=== PATIENT | female | born 1940 | race Two or more races ===

== ENCOUNTER 2018-10-30 11:22 | Emergency (ER) | payer SELFPAY ==
[~2018-10-30] VITALS: Ht 152.4 cm; Wt 54.4 kg
--- NOTE | 2018-10-30 11:22 | NUR ---
BIB RA60 78 YEAR OLD FEMALE ALTERED MENTAL STATUS, HYPOTENSIVE BP 80/45, O2 SAT 91%RA, GOOD EQUAL COMMERCIAL KITCHEN SERVICE TECHNICIAN PER EMS. BG 171 ON THE FIELD, PATIENT UNABLE TO VERBALIZE NEEDS, BREATHING EVEN AND LABORED, ON CONTINUOUS O2 VIA NC, SATURATING AT 93%, SKIN WARM TO TOUCH. MD AT BEDSIDE. ALL ORDERED INITATED
--- NOTE | 2018-10-30 11:23 | NUR ---
PATIENT TRANSPORTED FOR CT VIA GURNEY.
--- NOTE | 2018-10-30 11:23 | NUR ---
CODE STROKE ACTIVATED.
[2018-10-30] MEDS ORDERED: IV NS 0.9% 1,000 ML BAG IV ONE ×2 (11:30→12:00)
--- NOTE | 2018-10-30 11:30 | NUR ---
PATIENT CAME FROM CT SCAN WITH CONTRAST, ALL IV MEDS GIVEN ORDERED. F/C WAS INSERTED, PROFESSOR OF BIOLOGICAL SCIENCES AT BEDSIDE.
[2018-10-30] MEDS ORDERED: IV NS 0.9% 250 ML IV ONE (11:34)
[2018-10-30] MEDS ORDERED: IOHEXOL-350 100 ML VIAL IV ONE (11:34)
[2018-10-30] MEDS ORDERED: CT SWABBABLE VALVE TRANS SET 1 EA INFUS.SET MC ONE (11:35)
--- NOTE | 2018-10-30 11:40 | NUR ---
PATIENT REMAINS STABLE, ALL VS ARE STABLE. NO DISTRESS NOTED. BLOOD DRAW AND URINE SAMPLE SENT TO LAB
[2018-10-30 11:46] LABS: BASOPHILS # (AUTO) 0.1 /CMM (0.0-0.2); BASOPHILS % (AUTO) 0.8 % (0.0-2.0); EOSINOPHILS % (AUTO) 0.8 % (0.0-6.0); HEMATOCRIT 31 % (33-45); HEMOGLOBIN 9.8 g/dL (11.5-14.8); LYMPHOCYTES # (AUTO) 2.7 /CMM (0.8-4.8); LYMPHOCYTES % (AUTO) 34.6 % (20.0-44.0); MEAN CORPUSCULAR HGB CONC 32 g/dl (31.0-36.0); MEAN CORPUSCULAR VOLUME 94 fL (82-100); MONOCYTES # (AUTO) 0.9 /CMM (0.1-1.30); MONOCYTES % (AUTO) 11.9 % (2.0-12.0); NEUTROPHILS % (AUTO) 51.9 % (43.0-81.0); PLATELET COUNT (AUTO) 243 /CMM (150-450); RED BLOOD CELL COUNT(AUTO) 3.25 MIL/uL (4.0-5.2); WHITE BLOOD COUNT (AUTO) 7.7 K/uL (4.3-11.0)
[2018-10-30 11:51] LABS: CALCIUM, SERUM 8.1 mg/dL (8.5-10.1); CARBON DIOXIDE 26 mmol/L (21-32); CHLORIDE 111 mmol/L (98-107); CREATININE 1.1 mg/dL (0.6-1.3); GLUCOSE 142 mg/dL (74-106); POTASSIUM 4.4 mmol/L (3.5-5.1); SODIUM SERUM 144 mmol/L (136-145); UREA NITROGEN, BLOOD 27 mg/dL (7-18)
[2018-10-30] MEDS ORDERED: CEFTRIAXONE 1 G VIAL ONE (11:55)
[2018-10-30 11:59] LABS: CHOLESTEROL 148 mg/dL (<200); HDL CHOLESTEROL 62 mg/dL (40-60); LDL 81 mg/dL (0-99); TRIGLYCERIDES 65 mg/dL (30-150)
[2018-10-30] MEDS ORDERED: CEFTRIAXONE 1GM BAG (ER ONLY) 50 ML IV ONE (12:00)
[2018-10-30 12:01] LABS: APPEARANCE,URINE Cloudy (CLEAR); BILIRUBIN,URINE Negative (NEGATIVE); BLOOD, URINE Negative Ery/uL (NEGATIVE); COLOR,URINE Yellow (YELLOW); KETONES,URINE Trace (NEGATIVE); LEUKOCYTE ESTERASE ,URINE Negative (NEGATIVE); NITRITE, URINE Negative (NEGATIVE); PROTEIN,URINE 30 mg/dl (NEGATIVE); UGLUCOSE Negative (NEGATIVE); UROBILINOGEN,URINE 0.2 EU/dL (0.2)
[2018-10-30 12:09] LABS: ALANINE AMINOTRANSFERASE 17 U/L (12-78); ALBUMIN 2.8 g/dL (3.4-5.0); ALKALINE PHOSPHATASE 126 U/L (46-116); ASPARTATE AMINOTRANSFERASE 33 U/L (15-37); BILIRUBIN,DIRECT 0.1 mg/dL (0.0-0.2); BILIRUBIN,TOTAL 0.2 mg/dL (0.2-1.0); TOTAL PROTEIN, SERUM 7.5 g/dL (6.4-8.2)
[2018-10-30] MEDS ORDERED: MIDAZOLAM HCL 2 MG/2ML VIAL ONE (12:10)
[2018-10-30] MEDS ORDERED: MIDAZOLAM HCL 2 MG/2ML VIAL IV ONE (12:30)
[2018-10-30] MEDS ORDERED: HALOPERIDOL LACTATE INJ 5 MG/ML VIAL IM ONE (12:30)
[2018-10-30] MEDS ORDERED: HALOPERIDOL LACTATE INJ 5 MG/ML VIAL ONE (12:32)
--- NOTE | 2018-10-30 12:40 | NUR ---
PATIENT VSS ARE STABLE, FAMILY AT BEDSIDE
--- NOTE | 2018-10-30 12:50 | NUR ---
NURSING SUP MADE AWARE OF TELE REQUEST FOR THIS PATIENT.
[2018-10-30] MEDS ORDERED: FENTANYL PF 100MCG/2ML AMPUL ONE (12:58)
[2018-10-30] MEDS ORDERED: FENTANYL PF 100MCG/2ML AMPUL IV ONE (13:00)
--- NOTE | 2018-10-30 13:02 | NUR ---
CALLED [facility]- DR CAMPOVERDE PAGED
--- NOTE | 2018-10-30 13:07 | NUR ---
PT ADMIT TO ROOM 326-2 TELE DX AMS ACCEPTING: NIRALI
--- NOTE | 2018-10-30 13:10 | NUR ---
PER MD VERBAL ORDER TO REMOVE F/C. F/C WAS REMOVED, PATIENT TOLERATED REMOVAL WELL.
[2018-10-30] MEDS ORDERED: ATRO3.5O3 SL (13:11)
[2018-10-30] MEDS ORDERED: ASPI-1169 PO (13:11)
[2018-10-30] MEDS ORDERED: ZOLP5TAB2 PO (13:11)
[2018-10-30] MEDS ORDERED: ACET650S11 RC (13:11)
[2018-10-30] MEDS ORDERED: FOLI1TAB16 PO (13:11)
[2018-10-30] MEDS ORDERED: MIRT15TA7 PO (13:11)
[2018-10-30] MEDS ORDERED: HYDR-4384 PO (13:11)
[2018-10-30] MEDS ORDERED: SENN-168 PO (13:11)
[2018-10-30] MEDS ORDERED: LEVO50TA8 PO (13:11)
[2018-10-30] MEDS ORDERED: QUET25TA PO (13:11)
[2018-10-30] MEDS ORDERED: LORA2ORA SL (13:11)
[2018-10-30] MEDS ORDERED: POLY17PO4 PO (13:11)
[2018-10-30] MEDS ORDERED: BISA10SU8 RC (13:11)
[2018-10-30] MEDS ORDERED: MORP20SO SL (13:11)
[2018-10-30] MEDS ORDERED: CARB1DRO3 EACHEYE (13:11)
[2018-10-30] MEDS ORDERED: ATOR40TA PO (13:11)
[2018-10-30] MEDS ORDERED: ACET-868 PO (13:11)
[2018-10-30] MEDS ORDERED: PROC25SU31 RC (13:11)
--- NOTE | 2018-10-30 13:12 | NUR ---
[phone] UNDER THE CARE OF [facility] [phone].
[2018-10-30] MEDS ORDERED: HYDROCODONE/APAP 5/325MG 1 EACH TABLET ONE (13:25)
--- NOTE | 2018-10-30 13:29 | NUR ---
PATIENT IS ABLE TO SWALLOW SIPS OF WATER WITHOUT DIFFICULTY. PAIN MEDS GIVEN ORDERED
[2018-10-30] MEDS ORDERED: HYDROCODONE/APAP 5/325MG 1 EACH TABLET PO ONE (13:30)
--- NOTE | 2018-10-30 14:05 | NUR ---
CALLED [facility] FOR S TRANSPORT [place] [address] [facility] [id number] ETA [phone] TRIP [id number]
--- NOTE | 2018-10-30 15:19 | NUR ---
REPORT GIVEN TO JAZMYN GILMORE, PATIENT WILL BE TRANSFERRED BACK TO FACILITY. PATIENT IS IN STABLE CONDTION WITH NO DISTRESS NOTED.
[2018-10-30 15:20] VITALS: BP 109/80
--- NOTE | 2018-10-30 15:20 | NUR ---
Patient discharged to home in stable condition. Written and verbal after care instructions given. Patient verbalizes understanding of instruction. IV removed. Catheter intact and site benign. Pressure and 4x4 applied to site. No bleeding noted.
== END 2018-10-30 15:20 ==
LOC: ER 11:24
DX: R41.82 Altered mental status, unspecified (principal); F03.90 Unspecified dementia, unspecified severity, without behavioral disturbance, psychotic disturbance, mood disturbance, and anxiety; Z79.82 Long term (current) use of aspirin; Z79.899 Other long term (current) drug therapy
CPT/HCPCS: 36415; 51702; 70450; 70496; 70498; 71045; 80048; 80061; 80076; 80305; 81001; 83605; 84484; 85025; 85730; 86850; 87040 ×2; 87077; 87081; 87086; 87186; 93005; 96361; 96372; 96374; 96375; 99284; A4606; J0696; J1630; J2250; J3010; J7030; J7050; J7060; Q9967; Z7610; 81000-TC

== ENCOUNTER 2019-02-17 10:03 | Inpatient (IN) | payer MEDICAID ==
[~2019-02-17] VITALS: Ht 152.4 cm; Wt 49.9 kg
[2019-02-17] VITALS (65 sets, daily range): BP systolic 60–118; BP diastolic 21–85
[~2019-02-17 10:03] MED LIST: ACET-868 PO; ACET650S11 RC; ASPI-1169 PO; ATOR40TA PO; ATRO3.5O3 SL; BISA10SU8 RC; CARB1DRO3 EACHEYE; FOLI1TAB16 PO; HYDR-4384 PO; LEVO50TA8 PO; LORA2ORA SL; MIRT15TA7 PO; MORP20SO SL; POLY17PO4 PO; PROC25SU31 RC; QUET25TA PO; SENN-168 PO; ZOLP5TAB2 PO
--- NOTE | 2019-02-17 10:06 | NUR ---
BIB RA 39 FROM [facility], LOW O2SAT(80'S), TO ER BED 5, HOOKED TO SHINE WORKER, CHANGED TO RT STEVE AT BEDSIDE, DR SARAVIA AT BEDSIDE.
[2019-02-17] MEDS ORDERED: ASPI-1152 PO (10:21)
[2019-02-17] MEDS ORDERED: IV NS 0.9% 1,000 ML BAG IV ONE (10:30)
[2019-02-17] MEDS ORDERED: ACETAMINOPHEN 650 MG/SUPP.RECT RC ONE ×2 (10:30→12:41)
[2019-02-17] MEDS ORDERED: CEFEPIME 1 GM in IV D5W 50 ML IV ONE (10:30)
--- NOTE | 2019-02-17 10:40 | NUR ---
INDWELLING HUGHES CATHETER INSERTED 16F, URINE SAMPLE SENT TO LAB
[2019-02-17 10:56] LABS: BASOPHILS % (AUTO) 0.3 % (0.0-2.0); EOSINOPHILS % (AUTO) 0.1 % (0.0-6.0); HEMATOCRIT 31 % (33-45); HEMOGLOBIN 9.9 g/dL (11.5-14.8); LYMPHOCYTES # (AUTO) 1.4 /CMM (0.8-4.8); LYMPHOCYTES % (AUTO) 35.1 % (20.0-44.0); MEAN CORPUSCULAR HGB CONC 32 g/dl (31.0-36.0); MEAN CORPUSCULAR VOLUME 89 fL (82-100); MONOCYTES # (AUTO) 0.2 /CMM (0.1-1.30); MONOCYTES % (AUTO) 6.5 % (2.0-12.0); NEUTROPHILS # (AUTO) 2.2 /CMM (1.8-8.9); PLATELET COUNT (AUTO) 297 /CMM (150-450); RED BLOOD CELL COUNT(AUTO) 3.49 MIL/uL (4.0-5.2); WHITE BLOOD COUNT (AUTO) 3.9 K/uL (4.3-11.0)
[2019-02-17 10:58] LABS: APPEARANCE,URINE Slightly Cloudy (CLEAR); BILIRUBIN,URINE SMALL (NEGATIVE); BLOOD, URINE Negative Ery/uL (NEGATIVE); COLOR,URINE Yellow (YELLOW); KETONES,URINE Negative (NEGATIVE); LEUKOCYTE ESTERASE ,URINE Negative (NEGATIVE); NITRITE, URINE Negative (NEGATIVE); PH,URINE 6.5 (5.0-8.0); PROTEIN,URINE 30 mg/dl (NEGATIVE); UGLUCOSE Negative (NEGATIVE)
[2019-02-17 11:03] LABS: CALCIUM, SERUM 8.8 mg/dL (8.5-10.1); CARBON DIOXIDE 19 mmol/L (21-32); CHLORIDE 108 mmol/L (98-107); CREATININE 2.5 mg/dL (0.6-1.3); GLUCOSE 123 mg/dL (74-106); POTASSIUM 3.8 mmol/L (3.5-5.1); SODIUM SERUM 143 mmol/L (136-145); UREA NITROGEN, BLOOD 28 mg/dL (7-18)
[2019-02-17 11:08] LABS: ALANINE AMINOTRANSFERASE 15 U/L (12-78); ALBUMIN 2.2 g/dL (3.4-5.0); ALKALINE PHOSPHATASE 112 U/L (46-116); ASPARTATE AMINOTRANSFERASE 55 U/L (15-37); BILIRUBIN,DIRECT 0.7 mg/dL (0.0-0.2); BILIRUBIN,TOTAL 1.3 mg/dL (0.2-1.0); TOTAL PROTEIN, SERUM 7.3 g/dL (6.4-8.2)
[2019-02-17 11:18] LABS: BACTERIA,URINE Many /HPF (None Seen); RBC,URINE 0-2 /HPF (0-2); SQUAMOUS EPITHELIAL CELL,UR Rare /HPF (None Seen); WBC,URINE 0-2 /HPF (0-3)
[2019-02-17] MEDS ORDERED: MAGNESIUM HYDROXIDE 30 ML UDC PO PRN (11:30)
[2019-02-17] MEDS ORDERED: Z GUARD REMEDY 2 OZ OINT TP PRN (11:30)
[2019-02-17] MEDS ORDERED: MAG HYDROX/AL HYDROX/SIMETH 30 ML UDC PO PRN (11:30)
[2019-02-17] MEDS ORDERED: ONDANSETRON HCL/PF 4 MG/2 ML VIAL IVP PRN (11:30)
[2019-02-17] MEDS ORDERED: HYDROCODONE/APAP 5/325MG 1 EACH TABLET PO PRN (11:30)
[2019-02-17] MEDS ORDERED: ACETAMINOPHEN 325 MG TABLET PO PRN (11:30)
[2019-02-17] MEDS ORDERED: ZOLPIDEM TARTRATE 5 MG TABLET PO PRN (11:30)
--- NOTE | 2019-02-17 11:40 | NUR ---
RT RECD PT ON NON REBREATHER PLACED PT ON BIPAP PER MD ORDERS
[2019-02-17 11:55] LABS: BAND % (MANUAL) 24 % (0.0-5.0); LYMPHOCYTES % (MANUAL) 47 % (16-48); METAMYELOCYTES % 1 % (0-0); MONOCYTES % (MANUAL) 18 % (0-11.0); NEUTROPHILS % (MANUAL) 10 (42-76)
--- NOTE | 2019-02-17 12:15 | NUR ---
PT WHEELED OUT VIA GURNEY TO CT SCAN. RT AT BEDSIDE.
[2019-02-17 12:42] LABS: ABG BASE EXCESS -3.3 mmol/L; ABG OXYGEN SATURATION 92.2 % (92.0-98.5); ABG PCO2 29.6 mmHg (35.0-45.0); ABG PH 7.445 (7.350-7.450); ABG PO2 70.5 mmHg (75.0-100.0); AaDO2 612.9 mmHg; COHb 0.2 % (0.5-1.5); MetHb 0.2 % (0.0-1.5); O2Hb 91.8 % (94.0-97.0); SITE, ABG Left Brachial; VENT MODE, BG BIPAP 15/5 RR14 100%
--- NOTE | 2019-02-17 13:12 | NUR ---
ICU BED 252, PER HOUSE SUP
[2019-02-17] MEDS ORDERED: IV D5/0.45 NACL 1,000 ML IV SCH (13:30)
--- NOTE | 2019-02-17 13:46 | NUR ---
REPORT GIVEN TO SULMA OF ICU
[2019-02-17] MEDS ORDERED: FEE PK DOSING 1 MIN EA MC ONE (14:17)
[2019-02-17] MEDS ORDERED: VANCOMYCIN 500 MG in IV D5W 100 ML IV SCH (15:00)
[2019-02-17] MEDS ORDERED: IV D5/ 0.9% NACL 1,000 ML IV ONE (15:00)
[2019-02-17] MEDS ORDERED: IV NS 0.9% 1,000 ML IV ONE (15:00)
--- NOTE | 2019-02-17 15:10 | NUR ---
RT REC PT ON NON REBREATHER PLACED ON BIPAP PER MD ORDERS, TRANSFERRED TO ICU NO SOB PLACED MEPILEX WLL CONT TO MONITOR Addendum: 02/17/19 at 1511 by YVONNE SYLVESTER RT Amended: Links added.
--- NOTE | 2019-02-17 15:22 | NUR ---
INITIAL BITUMEN PLANT OPERATOR NOTE ADMITTED PT FROM ER, APPEARS LETHARGIC, RESPONDING TO PAINFUL STIMULI, SR ON MONITOR, ON BIPAP TOLERATING WELL, NO S/O DISTRESS OBSERVED AT THIS TIME. BP TRENDING DOWN, DR. ORTIZ IN UNIT INFORMED, 1L NS BOLUS GIVEN. DR. EL IN UNIT RECOMMENDED LEVOPHED, PICC LINE REQUESTED. PT'S GRANDSON, BUSHRA, AT BEDSIDE UPDATED ON PT'S CONDITION AND NEED FOR CONSENT FOR PICC LINE PLACEMENT. CONSENT GRANTED, JENNIFER FRIAS CALLED TO INSERT PICC. WILL CONTINUE TO MONITOR PT FOR SAFETY AND COMFORT. BED IN LOW AND LOCKED POSITION, CALL LIGHT WITHIN REACH, PT LYING FLAT DUE TO LOW BLOOD PRESSURE.
[2019-02-17] MEDS: PIPERACILLIN /TAZOBACTAM 2.25 G in IV NS 0.9% 50 ML IV SCH (16:11)
[2019-02-17] MEDS: NOREPINEPHRINE 16 MG in IV D5W 500 ML IV PRN (17:01)
--- NOTE | 2019-02-17 19:19 | NUR ---
CERTIFIED MEDICAL CODER NOTE PT REMAINS ON BIPAP, BP STABILIZING WITH LEVOPHED NO LASTING CHANGE AFTER 1L BOLUS, PICC IN PLACE, PT'S CARE ENDORSED TO DEPUTY SHERIFF BAILIFF RN FOR CONTINUITY OF CARE, BED IN LOW AND LOCKED POSITION, HEAD OF BED REMAINS FLAT.
--- NOTE | 2019-02-17 19:40 | NUR ---
PT RCVD ON BIPAP 30/03, RATE 14, 100% . NO RESPIRATORY DISTRESS NOTED AT THIS TIME. SKIN INTACT. BIPAP PLUGGED INTO RED OUTLET. ALARMS ON AND AUDIBLE. AMBU BAG AT BEDSIDE. WILL CONTINUE TO MONITOR THE PT.
--- NOTE | 2019-02-17 19:45 | NUR ---
ICU/ASSURANCE ENGINEER RECEIVED REPORT FROM DAY NURSE. SEE FLOWSHEET FOR FULL ASSESSMENT, INCLUDING BIPAP SETTINGS, WELL SKIN ISSUES AND THE INTERVENTIONS TO THEM. PT IS CURRENTLY LETHARGIC. PT IS ON LEVO WELL IVF, SEE IV SPREAD SHEET FOR RATES. PT IS NOT IN ANY ACUTE DISTRESS, PT WAS TURNED AND REPOSITIONED FOR COMFORT AND CARE. WILL CONTINUE TO MONITOR THIS PT.
--- NOTE | 2019-02-17 20:13 | NUR ---
ICU/EMERGENCY DEPARTMENT CLINICIAN BUSINESS CONTROL SPECIALIST AT BEDSIDE TO DO LIVER AND ABDOMEN U/S, AWAIT FOR ANY ABNORMAL RESULTS.
--- NOTE | 2019-02-17 22:05 | NUR ---
ICU/POST ACUTE CARE NURSE PRACTITIONER PT'S FAMILY AT BEDSIDE, GAVE UPDATE TO THEM AND ANSWERED ANY QUESTIONS. FAMILY STAYED AT BEDSIDE FOR ABOUT 30-45 MINUTES THEN WENT HOME. BUSINESS CARD GIVEN TO THEM WITH UNIT NUMBER TO CALL.
[2019-02-18] VITALS (96 sets, daily range): BP systolic 58–151; BP diastolic 17–108
[2019-02-18] MEDS: PIPERACILLIN /TAZOBACTAM 2.25 G in IV NS 0.9% 50 ML IV SCH ×4 (00:15→23:44)
--- NOTE | 2019-02-18 02:05 | NUR ---
ICU/TAPER MACHINE PT WAS GIVEN AM CARE, ALONG WITH ORAL CARE. PT TOLERATED THIS WELL REMAINS ON CURRENT BIPAP SETTINGS WITH SATURATION AT 98%. PT WAS TURNED AND REPOSITIONED FOR COMFORT AND CARE. NO ACUTE DISTRESS SEEN AT THIS TIME. PT APPEARS TO BE RESTING COMFORTABLY. WILL CONTINUE TO MONITOR THIS PT.
[2019-02-18] MEDS: IV D5/ 0.9% NACL 1,000 ML IV SCH ×3 (02:18→20:48)
--- NOTE | 2019-02-18 04:15 | NUR ---
ICU/COMMUNICATIONS SYSTEMS ENGINEER AM LABS ALONG WITH CHEST XRAY WERE DONE. AWAIT FOR ANY ABNORMAL RESULTS. PT WAS TURNED AND REPOSITIONED FOR COMFORT AND CARE. WILL CONTINUE TO MONITOR THIS PT.
[2019-02-18 04:46] LABS: BASOPHILS % (AUTO) 0.1 % (0.0-2.0); EOSINOPHILS % (AUTO) 0.3 % (0.0-6.0); HEMATOCRIT 26 % (33-45); HEMOGLOBIN 8.5 g/dL (11.5-14.8); LYMPHOCYTES # (AUTO) 0.8 /CMM (0.8-4.8); LYMPHOCYTES % (AUTO) 14.1 % (20.0-44.0); MEAN CORPUSCULAR HGB CONC 33 g/dl (31.0-36.0); MEAN CORPUSCULAR VOLUME 88 fL (82-100); MONOCYTES # (AUTO) 0.1 /CMM (0.1-1.30); MONOCYTES % (AUTO) 2.3 % (2.0-12.0); NEUTROPHILS # (AUTO) 4.8 /CMM (1.8-8.9); NEUTROPHILS % (AUTO) 83.2 % (43.0-81.0); PLATELET COUNT (AUTO) 207 /CMM (150-450); RED BLOOD CELL COUNT(AUTO) 2.96 MIL/uL (4.0-5.2); WHITE BLOOD COUNT (AUTO) 5.8 K/uL (4.3-11.0)
[2019-02-18 05:02] LABS: CALCIUM, SERUM 7.3 mg/dL (8.5-10.1); CARBON DIOXIDE 19 mmol/L (21-32); CHLORIDE 114 mmol/L (98-107); GLUCOSE 192 mg/dL (74-106); MAGNESIUM 3.2 mg/dL (1.8-2.4); PHOSPHORUS 2.2 mg/dL (2.5-4.9); POTASSIUM 3.2 mmol/L (3.5-5.1); SODIUM SERUM 145 mmol/L (136-145); UREA NITROGEN, BLOOD 31 mg/dL (7-18)
--- NOTE | 2019-02-18 07:15 | NUR ---
RN INITIAL NOTES RECEIVED PT AWAKE, MOANING/AGITATED. ON BIPAP. HOB ELEVATED. CLAUDIA PICC IN PLACE. ON LEVO AT 14MCG/MIN. WILL CLOSELY MONITOR BP. IVF INFUSING. FC IN PLACE. NO HEMATURIA NOTED. BLE ELEVATED. WILL MONITOR.
[2019-02-18 08:42] LABS: ABG BASE EXCESS -5.1 mmol/L; ABG OXYGEN SATURATION 88.3 % (92.0-98.5); ABG PCO2 27.4 mmHg (35.0-45.0); ABG PH 7.438 (7.350-7.450); ABG PO2 55.7 mmHg (75.0-100.0); AaDO2 629.9 mmHg; COHb 0.6 % (0.5-1.5); MetHb 0.5 % (0.0-1.5); O2Hb 87.3 % (94.0-97.0); SITE, ABG Left Brachial; VENT MODE, BG NON-REBREATHER
--- NOTE | 2019-02-18 09:00 | NUR ---
RN NOTES PT AWAKE, RESTLESS, MOANING. PLACED ON NON-REBREATHER AT 15LPM. KEPT HOB ELEVATED. 02 SAT ON 80S. ABG DONE. RESULT RELAYED TO DR EL. PT PLACED BACK ON BIPAP. WILL CLOSELY MONITOR
--- NOTE | 2019-02-18 09:14 | NUR ---
WOUND CARE CONSULT: PT PRESENTS WITH LEFT LATERAL BACK STAGE 1 REDNESS, LEFT PELVIS/HIP INTACT DEEP TISSUE INJURY, PRESENT ON ADMISSION. PT IS CONTRACTED AND VERY THIN. RECOMMENDATIONS MADE FOR SKIN PROTECTION. DISCUSSED WITH NURSING STAFF. PT ON JOVI ISOFLEX LOW AIRLOSS BED. CURRENT XU SCORE IS 10. PT CURRENTLY ON BIPAP. WILL SEE PRN. VINSON IN AGREEMENT WITH PLAN OF CARE. Addendum: 02/18/19 at 0916 by FLIP SPRING WNDNU Amended: Links added.
[2019-02-18] MEDS: POTASSIUM CL. PREMIX PERIPHER. 50 ML IV SCH ×3 (11:08→13:19)
[2019-02-18] MEDS: NOREPINEPHRINE 16 MG in IV D5W 500 ML IV PRN (11:21)
--- NOTE | 2019-02-18 11:30 | NUR ---
RN NOTES SEEN AND EXAMINED BY DR ORTIZ. MD AWARE OF LAB VALUES, ABG AND IMAGING RESULT. PT ON BIPAP. KEPT HOB ELEVATED. ON LEVO, TITRATED ACCORDINGLY. ORDERED MRCP WO CONTRAST WHEN STABLE. WILL CONTINUE TO MONITOR
[2019-02-18] MEDS ORDERED: POTASSIUM PHOSPHATE MM 7.5 MMOL in IV D5W 100 ML IV SCH (12:00)
--- NOTE | 2019-02-18 12:12 | NUR ---
MRI NOT DONE: PATIENT ON VENT, AGITATED, UNABLE TO LAY FLAT PER PATIENTS NURSE/PER SALES AND IN HOME DELIVERY SPECIALISTLALY TRIMBLE.
[2019-02-18] MEDS: VANCOMYCIN 500 MG in IV D5W 100 ML IV SCH (14:32)
[2019-02-18] MEDS: QUETIAPINE FUMARATE 25 MG TABLET PO SCH (16:17)
[2019-02-18] MEDS: SENNOSIDES 8.6 MG TABLET PO SCH (16:17)
--- NOTE | 2019-02-18 18:35 | NUR ---
RN CLOSING NOTES PT REMAINS ON BIPAP. NO RESPIRATORY DISTRESS NOTED. NO SOB NOTED. NO SIGNS OF PAIN NOTED. LEVO OFF AT 1700. SBP>90MMHG. IVF INFUSING. TX PROVIDED ORDERED. KEPT CLEAN AND DRY. REPOSITIONED Q2. BLE ELEVATED. WILL ENDORSE FOR CONTINUITY OF CARE
--- NOTE | 2019-02-18 19:45 | NUR ---
ICU/TOOL LATHE OPERATOR RECEIVED REPORT FROM DAY NURSE. SEE FLOWSHEET FOR FULL ASSESSMENT, INCLUDING BIPAP SETTINGS, WELL SKIN ISSUES AND THE INTERVENTIONS TO THEM. PT IS CURRENTLY RESTLESS. PT IS RECEIVING IVF, SEE IV SPREAD SHEET FOR RATES. PT IS NOT IN ANY ACUTE DISTRESS AT THIS TIME, PT WAS TURNED AND REPOSITIONED FOR COMFORT AND CARE. WILL CONTINUE TO MONITOR THIS PT.
--- NOTE | 2019-02-18 21:15 | NUR ---
ICU/VP CORPORATE PARTNERSHIPS PT'S LACTIC ACID IS 6.2, WHICH IS A REDRAW. WILL CONTINUE TO MONITOR THIS PT AND HER LABS.
[2019-02-18] MEDS: MIRTAZAPINE 15 MG TABLET PO SCH (22:00)
--- NOTE | 2019-02-18 22:19 | NUR ---
ICU/GRANITE POLISHER UNABLE TO GIVE PT HER 2199 MEDICATION DUE TO THE FACT THAT PT IS CURRENTLY NPO AND ALTERED. WILL CONTINUE TO MONITOR THIS PT AND RESUME MEDICATION WHEN PT IS NO LONGER NPO WITH A DIET RESUMED.
--- NOTE | 2019-02-18 23:04 | NUR ---
ICU/FISCAL MANAGER PT HAD LACTIC ACID AT 1700 WHICH WAS 5.9 REPEAT WAS AT 2100 WAS 6.2 MD CALLED AND SAID JUST TO REDO ANOTHER LACTIC ACID IN AM.
[2019-02-19] VITALS (62 sets, daily range): BP systolic 83–131; BP diastolic 43–99
--- NOTE | 2019-02-19 02:00 | NUR ---
ICU/CASSANDRA ARCHITECT PT WAS GIVEN AM CARE, ALONG WITH ORAL CARE. PT TOLERATED THIS WELL REMAINS ON CURRENT BIPAP SETTINGS WITH SATURATION AT 90-95%. PT WAS TURNED AND REPOSITIONED FOR COMFORT AND CARE. NO ACUTE DISTRESS SEEN. PT APPEARS TO BE RESTING CONFORMABLY. WILL CONTINUE TO MONITOR THIS PT.
--- NOTE | 2019-02-19 04:24 | NUR ---
ICU/COMPUTER APPLICATIONS DEVELOPER AM LABS ALONG WITH CHEST XRAY WERE DONE. AWAIT FOR ANY ABNORMAL RESULTS. PT WAS TURNED AND REPOSITIONED FOR COMFORT AND CARE.
[2019-02-19 05:01] LABS: BASOPHILS % (AUTO) 0.2 % (0.0-2.0); EOSINOPHILS % (AUTO) 0.3 % (0.0-6.0); HEMATOCRIT 23 % (33-45); HEMOGLOBIN 7.5 g/dL (11.5-14.8); LYMPHOCYTES # (AUTO) 0.8 /CMM (0.8-4.8); LYMPHOCYTES % (AUTO) 14.3 % (20.0-44.0); MEAN CORPUSCULAR HGB CONC 33 g/dl (31.0-36.0); MEAN CORPUSCULAR VOLUME 87 fL (82-100); MONOCYTES # (AUTO) 0.1 /CMM (0.1-1.30); MONOCYTES % (AUTO) 1.7 % (2.0-12.0); NEUTROPHILS # (AUTO) 4.4 /CMM (1.8-8.9); NEUTROPHILS % (AUTO) 83.5 % (43.0-81.0); PLATELET COUNT (AUTO) 94 /CMM (150-450); RED BLOOD CELL COUNT(AUTO) 2.61 MIL/uL (4.0-5.2); WHITE BLOOD COUNT (AUTO) 5.3 K/uL (4.3-11.0)
[2019-02-19 05:27] LABS: ALANINE AMINOTRANSFERASE 29 U/L (12-78); ALBUMIN 1.6 g/dL (3.4-5.0); ALKALINE PHOSPHATASE 79 U/L (46-116); ASPARTATE AMINOTRANSFERASE 74 U/L (15-37); BILIRUBIN,DIRECT 0.2 mg/dL (0.0-0.2); BILIRUBIN,TOTAL 0.6 mg/dL (0.2-1.0); CALCIUM, SERUM 7.8 mg/dL (8.5-10.1); CARBON DIOXIDE 18 mmol/L (21-32); CHLORIDE 116 mmol/L (98-107); CREATININE 1.4 mg/dL (0.6-1.3); GLUCOSE 71 mg/dL (74-106); MAGNESIUM 2.3 mg/dL (1.8-2.4); PHOSPHORUS 2.2 mg/dL (2.5-4.9); POTASSIUM 2.9 mmol/L (3.5-5.1); SODIUM SERUM 149 mmol/L (136-145); TOTAL PROTEIN, SERUM 5.5 g/dL (6.4-8.2); UREA NITROGEN, BLOOD 26 mg/dL (7-18)
[2019-02-19 05:29] LABS: CREATINE KINASE, TOTAL 690 U/L (26-192)
[2019-02-19 06:19] LABS: BAND % (MANUAL) 17 % (0.0-5.0); LYMPHOCYTES % (MANUAL) 19 % (16-48); MONOCYTES % (MANUAL) 2 % (0-11.0); NEUTROPHILS % (MANUAL) 62 (42-76)
[2019-02-19] MEDS: IV D5/ 0.9% NACL 1,000 ML IV SCH ×2 (06:51→19:28)
[2019-02-19] MEDS: LEVOTHYROXINE SODIUM 50 MCG TABLET PO SCH (06:51)
--- NOTE | 2019-02-19 07:10 | NUR ---
FLOOR WINDER INITIAL NOTES RECEIVED PT FROM NIGHTSHIFT RN IN STABLE CONDITION. PT ON BIPAP AND TOLERATING SETTINGS WELL. SETTINGS CHECKED FOR ACCURACY (AC 14, FIO2 40%). PT NOTED TO BE SINUS TACH ON THE TELE MONITOR WITH A HR OF 106. HUGHES CATH NOTED TO BE INTACT AND DRAINING TO GRAVITY. RIGHT UPPER ARM PICC NOTED TO BE C/D/I. BED IN LOW LOCKED POSITION, SIDE RAILS UP X3, CALL LIGHT WITHIN REACH, BILATERAL SOFT WRIST RESTRAINTS NOTES. GOOD PERIPHERAL PULSES AND CAP REFILL NOTED. WILL CONTINUE TO MONITOR
[2019-02-19] MEDS: QUETIAPINE FUMARATE 25 MG TABLET PO SCH ×2 (08:15→17:00)
[2019-02-19] MEDS: SENNOSIDES 8.6 MG TABLET PO SCH ×2 (08:15→17:00)
[2019-02-19] MEDS: PIPERACILLIN /TAZOBACTAM 2.25 G in IV NS 0.9% 50 ML IV SCH (08:22)
[2019-02-19] MEDS ORDERED: ASPIRIN EC 81 MG TABLET.DR PO SCH (09:00)
[2019-02-19] MEDS ORDERED: FOLIC ACID 1 MG TABLET PO SCH (09:00)
[2019-02-19] MEDS ORDERED: ATORVASTATIN 40 MG TABLET PO SCH (09:00)
[2019-02-19] MEDS: POTASSIUM CL. PREMIX PERIPHER. 50 ML IV SCH ×3 (10:03→12:12)
--- NOTE | 2019-02-19 11:00 | NUR ---
ASSEMBLER DC FIELD YOKE NOTES: OFF BIPAP PT TAKEN OFF BIPAP FOR WEANING TRAIL. PT NOTED TO BE TACHYCARDIC AND TACHYPNEIC. DR. BILLS AT BEDSIDE ALONG WITH RT. VERBAL ORDERS OBTAINED TO RESUME BIPAP WITH A BACK UP RATE OF 20 AND FIO2 OF 100%.
[2019-02-19 11:20] LABS: ABG BASE EXCESS -9.2 mmol/L; ABG OXYGEN SATURATION 77.9 % (92.0-98.5); ABG PCO2 31.7 mmHg (35.0-45.0); ABG PO2 48.8 mmHg (75.0-100.0); COHb 0.9 % (0.5-1.5); MetHb 0.7 % (0.0-1.5); O2Hb 76.7 % (94.0-97.0); SITE, ABG Left Radial; VENT MODE, BG BIPAP 15/5 PS 10
[2019-02-19] MEDS ORDERED: POTASSIUM PHOSPHATE MM 7.5 MMOL in IV D5W 100 ML IV SCH (12:00)
[2019-02-19 13:48] LABS: ABG BASE EXCESS -6.2 mmol/L; ABG OXYGEN SATURATION 95.6 % (92.0-98.5); ABG PCO2 30.4 mmHg (35.0-45.0); ABG PO2 90.6 mmHg (75.0-100.0); COHb 0.5 % (0.5-1.5); MetHb 0.5 % (0.0-1.5); O2Hb 94.6 % (94.0-97.0); PEEP,BG 15 cm H2O; SITE, ABG Left Brachial; VENT MODE, BG BIPAP PS 10
[2019-02-19] MEDS: PIPERACILLIN /TAZOBACTAM 2.25 G in IV D5W 50 ML IV SCH (15:21)
[2019-02-19] MEDS: VANCOMYCIN 500 MG in IV D5W 100 ML IV SCH (16:38)
--- NOTE | 2019-02-19 17:05 | NUR ---
RT END OF THE SHIFT REPORT, PT. 78 YEARS OLD FEMALE REC. IN AM 0700 PT. SOMEWHAT AWAKE ON BIPAP WITH NOTED SETTINGS, 0930AM-1110AM PT. OFF BIPAP NOT SEN. PLACED BACK ON BIPAP PER DR. BILLS BIPAP CHANGES PER DR. BILLS PT. REMAIN STABLE, ON AC MODE. B/S BILATERALLY RALES, NASAL SUX'D FOR MINIMAL/AMT AMT THICK YELLOW SECRETIONS, EQUAL CHEST RISE NOTED, BIPAP PLUGGED INTO RED OUT LET. AMBU BAG REMAIN AT THE BEDSIDE. REPORT WILL PASS TO PM SHIFT. Addendum: 02/19/19 at 1707 by BEBE JAMES RT Amended: Links added.
--- NOTE | 2019-02-19 19:37 | NUR ---
INVESTOR RELATIONS SPECIALIST CLOSING NOTES PT STABLE ON BIPAP WITH CURRENT SETTING. VITAL SIGNS STABLE AT THIS TIME. INVASIVE LINES REMAIN C/D/I. SAFETY MEASURES REMAIN IN PLACE. ENDORSE TO NIGHTSHIFT RN FOR GERARDO
--- NOTE | 2019-02-19 19:55 | NUR ---
ICU/MARINE ENGINE MACHINIST APPRENTICE RECEIVED REPORT FROM DAY NURSE. SEE FLOWSHEET FOR FULL ASSESSMENT, INCLUDING BIPAP SETTINGS, WELL SKIN ISSUES AND THE INTERVENTIONS TO THEM. PT IS CURRENTLY RESTLESS. PT IS RECEIVING IVF, SEE IV SPREAD SHEET FOR RATES. PT IS NOT IN ANY ACUTE DISTRESS AT THIS TIME, PT WAS TURNED AND REPOSITIONED FOR COMFORT AND CARE. WILL CONTINUE TO MONITOR THIS PT.
--- NOTE | 2019-02-19 20:50 | NUR ---
ICU/THERAPEUTIC RECREATION LEADER PT'S FAMILY CAME TO SEE PT AND REQUEST THAT PT BE SEDATED, HOWEVER PT IS LETHARGIC AND CURRENTLY NPO. AND WITH ADVANCE STAGES OF DEMENTIA WOULD NOT BE BENEFICIAL TO SEDATE PT. FAMILY AGREED.
[2019-02-19] MEDS: MIRTAZAPINE 15 MG TABLET PO SCH (22:00)
--- NOTE | 2019-02-19 22:10 | NUR ---
ICU/AUTHORIZER PT IS CURRENTLY NPO UNABLE TO ADMINISTER PT'S PO MEDICATION. ALSO PT IS FAIRLY LETHARGIC AND POSSIBLE ASPIRATION IS A FACTOR. WILL CONTINUE TO MONITOR THIS PT. PT WAS TURNED AND REPOSITIONED FOR COMFORT AND CARE.
--- NOTE | 2019-02-19 22:46 | NUR ---
RECEIVED PT ON BIPAP ON NOTED SETTINGS. PT IS AWAKE, TACHYPNEIC. BIPAP ALARMS SET AND AUDIBLE. AMBU BAG AT BEDSIDE. WILL CONTINUE TO MONITOR. Addendum: 02/19/19 at 2249 by YUE GODINEZ RT Amended: Links added.
[2019-02-20] VITALS (94 sets, daily range): BP systolic 71–149; BP diastolic 47–99
[2019-02-20] MEDS: PIPERACILLIN /TAZOBACTAM 2.25 G in IV D5W 50 ML IV SCH ×2 (00:30→08:40)
--- NOTE | 2019-02-20 01:50 | NUR ---
ICU/MEDICINE WORKER STAT ABG DONE, PT IS BREATHING 30'S WITH SATURATION IN THE 80'S. WAIT FOR RESULTS
[2019-02-20 02:02] LABS: ABG BASE EXCESS -7.5 mmol/L; ABG OXYGEN SATURATION 79.9 % (92.0-98.5); ABG PCO2 38.3 mmHg (35.0-45.0); ABG PH 7.297 (7.350-7.450); ABG PO2 52.1 mmHg (75.0-100.0); AaDO2 622.6 mmHg; COHb 0.6 % (0.5-1.5); MetHb 0.8 % (0.0-1.5); O2Hb 78.8 % (94.0-97.0); SITE, ABG Right Radial
--- NOTE | 2019-02-20 02:02 | NUR ---
ABG DONE. RN NOTIFIED WITH THE RESULT.
--- NOTE | 2019-02-20 02:05 | NUR ---
ICU/MORNING NEWS PRODUCER KAYLEE GIV3EN TO CHARGE NURSE, WHO THEN CALLED ER MD TO SEE PT WELL PRIMARY MD AND FAMILY TO ASK WHAT THE WISHES WERE FOR CODE STATUS DUE TO YESTERDAYS QUESTIONABLE DNR/DNI. FAMILY SAID YES FULL CODE. PRIMARY MD SAID WHATEVER ER MD WANTS. ER TO INTUBATE THE PT DUE TO PO2 AT 50%.
--- NOTE | 2019-02-20 02:45 | NUR ---
ICU/YEAST WASHER 0239 ELIZABETH AND ATOMIDATE WERE GIVEN BY CHARGE NURSE. THEN ER INTUBATED 0241 7.5 AND 22 AT LIP LINE WITH VENT AT A/C 16,400%,100, PEEP 5. SATURATION AT 90%. STAT CHEST XRAY DONE TO CHECK THE TUBE PLACEMENT.
--- NOTE | 2019-02-20 03:00 | NUR ---
@0241 PT ORALLY INTUBATED BY DR VALENCIA (ER). 7.5 ETT SECURED AT 22CM AT THE LIP. GOOD COLOR CHANGED ON CO2 DETECTOR, EQUAL CHEST RISE AND BREATH SOUND. PT PLACED ON 840 VENT. ABG IN 30 MIN. VENT ALARMS SET AND AUDIBLE. AMBU BAG AT BEDSIDE. SX'D FOR LARGE AMT OF FROTHY TINGED SECRETIONS. WILL CONTINUE TO MONITOR. Addendum: 02/20/19 at 0305 by YUE GODINEZ RT Amended: Links added.
--- NOTE | 2019-02-20 03:20 | NUR ---
ICU/VENDING SUPERVISOR CALLED FOR STAT IMAGINING, OF ETT TUBE PLACEMENT. STILL WAITING RESULTS
--- NOTE | 2019-02-20 03:45 | NUR ---
ICU/SENIOR GRADUATE ADVISOR IMAGING MD CALLED SAID THAT ETT IS IN ESOPHAGEAL AND ASKED HOW SATURATION IS , WHICH IS 80'S. ER DR WAS CALLED TO NOTIFY OF TUBE PLACEMENT.
--- NOTE | 2019-02-20 04:00 | NUR ---
ICU/CLINICAL TRAINER ER MD NOTIFIED ABOUT RESULTS OF ETT TUBE PLACEMENT. CHARGE NURSE NOTIFIED ABOUT ETT TUBE PLACEMENT. ALSO SURVEYOR CHAIN HELPER MD NOTIFIED ABOUT ETT TUBE PLACEMENT. AWAIT FOR ORDERS.
[2019-02-20 04:10] LABS: ABG BASE EXCESS -8.9 mmol/L; ABG OXYGEN SATURATION 85.1 % (92.0-98.5); ABG PH 7.205 (7.350-7.450); ABG PO2 65.4 mmHg (75.0-100.0); AaDO2 599.6 mmHg; COHb 0.7 % (0.5-1.5); MetHb 0.5 % (0.0-1.5); O2Hb 84.1 % (94.0-97.0); PEEP,BG 5 cm H2O; SITE, ABG Right Radial
--- NOTE | 2019-02-20 04:11 | NUR ---
POST INTUBATION ABG DONE. NOTIFIED RN WITH THE RESULT.
--- NOTE | 2019-02-20 04:15 | NUR ---
ICU/LINOTYPE MECHANIC CALLED AGAIN ER MD NOTIFIED ABOUT RESULTS OF ETT TUBE PLACEMENT.SAID TO HAVE CT. CHARGE NURSE NOTIFIED ABOUT ETT TUBE PLACEMENT SAID TO CALL DOORMAKER. ALSO DOORMAKER MD NOTIFIED ABOUT ETT TUBE PLACEMENT. AWAIT FOR ORDERS.
--- NOTE | 2019-02-20 04:20 | NUR ---
ICU/LOKIE ENGINEER ER DR CAME UP DOUBLE CHECKED ETT TUBE PLACEMENT WAS IN CORRECT PLACE. CALLED DIALYSIS EQUIPMENT TECHNICIAN FOR PEEP ON VENT
[2019-02-20 04:41] LABS: BASOPHILS % (AUTO) 0.1 % (0.0-2.0); EOSINOPHILS % (AUTO) 0.1 % (0.0-6.0); HEMATOCRIT 26 % (33-45); HEMOGLOBIN 8.2 g/dL (11.5-14.8); LYMPHOCYTES # (AUTO) 1.2 /CMM (0.8-4.8); LYMPHOCYTES % (AUTO) 11.9 % (20.0-44.0); MEAN CORPUSCULAR HGB CONC 32 g/dl (31.0-36.0); MEAN CORPUSCULAR VOLUME 88 fL (82-100); MONOCYTES # (AUTO) 0.2 /CMM (0.1-1.30); MONOCYTES % (AUTO) 2.1 % (2.0-12.0); NEUTROPHILS # (AUTO) 8.8 /CMM (1.8-8.9); NEUTROPHILS % (AUTO) 85.8 % (43.0-81.0); RED BLOOD CELL COUNT(AUTO) 2.92 MIL/uL (4.0-5.2); WHITE BLOOD COUNT (AUTO) 10.2 K/uL (4.3-11.0)
[2019-02-20 04:57] LABS: PLATELET COUNT (AUTO) 44 /CMM (150-450)
[2019-02-20 05:12] LABS: CALCIUM, SERUM 8.2 mg/dL (8.5-10.1); CARBON DIOXIDE 20 mmol/L (21-32); CHLORIDE 120 mmol/L (98-107); GLUCOSE 112 mg/dL (74-106); POTASSIUM 3.2 mmol/L (3.5-5.1); SODIUM SERUM 152 mmol/L (136-145); UREA NITROGEN, BLOOD 25 mg/dL (7-18)
[2019-02-20 05:13] LABS: BAND % (MANUAL) 3 % (0.0-5.0); EOSINOPHILS % (MANUAL) 1 % (0-4); LYMPHOCYTES % (MANUAL) 12 % (16-48); METAMYELOCYTES % 1 % (0-0); MONOCYTES % (MANUAL) 1 % (0-11.0); NEUTROPHILS % (MANUAL) 82 (42-76)
--- NOTE | 2019-02-20 05:22 | NUR ---
ICU/ELECTRONICS TEST ENGINEER PEEP ORDERS WERE RECEIVED FROM WASTE SPECIALIST RT MARTIN NOTIFIED ABOUT THIS. ORDERS WERE CARRIED OUT. WILL CONTINUE TO MONITOR THIS PT.
--- NOTE | 2019-02-20 05:35 | NUR ---
PEEP CHANGED TO 10 PER MD. RN AWARE.
[2019-02-20] MEDS ORDERED: NOREPINEPHRINE 4 MG/4 ML AMPUL IV ONE (06:12)
[2019-02-20] MEDS: NOREPINEPHRINE 16 MG in IV D5W 500 ML IV PRN (06:17)
[2019-02-20] MEDS: LEVOTHYROXINE SODIUM 50 MCG TABLET PO SCH (06:30)
[2019-02-20] MEDS: IV D5/ 0.9% NACL 1,000 ML IV SCH ×2 (06:30→15:19)
--- NOTE | 2019-02-20 07:10 | NUR ---
TREATING PLANT PUMPER INITIAL NOTES RECEIVED PT FROM NIGHTSHIFT RN IN STABLE CONDITION. PT INTUBATED AND LETHARGIC WITH NO SEDATION. VENT SETTINGS CHECKED FOR ACCURACY (AC 16, TV 400, FIO2 100%, PEEP 10). PT TOLERATING SETTINGS WELL. PT NOTED TO BE SR ON THE TELE MONITOR WITH A HR OF 81. HUGHES CATHETER NOTED TO BE INTACT AND DRAINING TO GRAVITY, RIGHT UPPER ARM PICC NOTED TO BE C/D/I. PT RECEIVING LEVO DRIP AT 8MCG/MIN. BP STABLE AT THIS TIME. BED IN LOW LOCKED POSITION, SIDE RAILS UP X3, CALL LIGHT WITHIN REACH, BILATERAL SOFT WRIST RESTRAINTS NOTES. GOOD PERIPHERAL PULSES AND CAP REFILL NOTED. WILL CONTINUE TO MONITOR
[2019-02-20 07:53] LABS: BASOPHILS % (AUTO) 0.1 % (0.0-2.0); EOSINOPHILS % (AUTO) 0.1 % (0.0-6.0); HEMATOCRIT 29 % (33-45); HEMOGLOBIN 8.9 g/dL (11.5-14.8); LYMPHOCYTES # (AUTO) 1.3 /CMM (0.8-4.8); LYMPHOCYTES % (AUTO) 11.9 % (20.0-44.0); MEAN CORPUSCULAR HGB CONC 30 g/dl (31.0-36.0); MEAN CORPUSCULAR VOLUME 92 fL (82-100); MONOCYTES # (AUTO) 0.3 /CMM (0.1-1.30); NEUTROPHILS % (AUTO) 84.9 % (43.0-81.0); RED BLOOD CELL COUNT(AUTO) 3.19 MIL/uL (4.0-5.2); WHITE BLOOD COUNT (AUTO) 10.6 K/uL (4.3-11.0)
[2019-02-20 07:57] LABS: PLATELET COUNT (AUTO) 39 /CMM (150-450)
[2019-02-20 08:31] LABS: ABG BASE EXCESS -8.8 mmol/L; ABG OXYGEN SATURATION 95.5 % (92.0-98.5); ABG PCO2 49.5 mmHg (35.0-45.0); ABG PH 7.199 (7.350-7.450); ABG PO2 102.9 mmHg (75.0-100.0); AaDO2 560.6 mmHg; COHb 0.2 % (0.5-1.5); MetHb 0.8 % (0.0-1.5); O2Hb 94.5 % (94.0-97.0); PEEP,BG 10 cm H2O; SITE, ABG Right Radial; VT, ABG 400 mL
[2019-02-20] MEDS: QUETIAPINE FUMARATE 25 MG TABLET PO SCH (08:42)
[2019-02-20] MEDS: SENNOSIDES 8.6 MG TABLET PO SCH (08:42)
[2019-02-20] MEDS ORDERED: PHARMACY TO CHANGE PO MEDS TO GT/NG XX PRN (09:30)
[2019-02-20] MEDS ORDERED: HYDROCODONE/APAP 5/325MG 1 EACH TABLET GT PRN (09:40)
[2019-02-20] MEDS ORDERED: MAG HYDROX/AL HYDROX/SIMETH 30 ML UDC GT PRN (09:41)
[2019-02-20] MEDS ORDERED: LEVOTHYROXINE SODIUM 50 MCG TABLET GT SCH (09:41)
[2019-02-20] MEDS ORDERED: MAGNESIUM HYDROXIDE 30 ML UDC GT PRN (09:42)
[2019-02-20] MEDS ORDERED: ACETAMINOPHEN 650 MG/20.3 ML UDC PO PRN (10:00)
[2019-02-20] MEDS ORDERED: ASPIRIN 81 MG TAB.CHEW GT ONE (10:00)
[2019-02-20] MEDS: POTASSIUM CL. PREMIX PERIPHER. 50 ML IV SCH ×4 (10:02→13:53)
[2019-02-20] MEDS: ACETAMINOPHEN 650 MG/20.3 ML UDC GT PRN ×2 (10:03→18:24)
[2019-02-20] MEDS ORDERED: ETOMIDATE 2 MG/ML VIAL IV ONE (11:01)
[2019-02-20] MEDS ORDERED: ROCURONIUM BROMIDE 50 MG/5 ML IV ONE (11:01)
[2019-02-20] MEDS ORDERED: IPRATROPIUM NEB FS 0.5 MG/2.5 ML AMPUL.NEB NEB PRN (12:00)
[2019-02-20] MEDS ORDERED: ALBUTEROL FS 2.5 MG/3 ML VIAL.NEB NEB PRN (12:00)
[2019-02-20 12:15] LABS: ABG BASE EXCESS -6.5 mmol/L; ABG OXYGEN SATURATION 93.6 % (92.0-98.5); ABG PH 7.387 (7.350-7.450); ABG PO2 69.6 mmHg (75.0-100.0); AaDO2 613.4 mmHg; COHb 0.8 % (0.5-1.5); MetHb 0.6 % (0.0-1.5); O2Hb 92.3 % (94.0-97.0); PEEP,BG 10 cm H2O; SITE, ABG Right Radial; VT, ABG 400 mL
[2019-02-20] MEDS: PROPOFOL 100 ML IV PRN (13:54)
[2019-02-20] MEDS ORDERED: PIPERACILLIN /TAZOBACTAM 3.375 G in IV D5W 100 ML IV SCH (16:00)
[2019-02-20 16:18] LABS: OCCULT BLOOD STOOL NEGATIVE (NEGATIVE)
[2019-02-20] MEDS: QUETIAPINE FUMARATE 100 MG TABLET GT SCH (17:00)
[2019-02-20] MEDS: SENNOSIDES 8.6 MG TABLET GT SCH (17:00)
[2019-02-20] MEDS: VANCOMYCIN 500 MG in IV D5W 100 ML IV SCH (17:06)
[2019-02-20] MEDS: MEROPENEM 1 G in IV NS 0.9% 100 ML IV SCH (18:24)
--- NOTE | 2019-02-20 19:47 | NUR ---
TRAFFIC OPERATIONS MANAGER CLOSING NOTES PT REMAINS STABLE ON VENTILATOR SUPPORT. VITAL SIGNS STABLE AT THIS TIME. INVASIVE LINES REMAIN PATENT AND INTACT. PT REPOSITIONED AND TURNED PER HOSPITAL PROTOCOL. PRN CARE RENDERED. CONDOM CATH REMAINS C/D/I. SAFETY MEASURES REMAIN IN PLACE. WILL ENDORSE TO NIGHTSHIFT RN FOR GERARDO
--- NOTE | 2019-02-20 20:00 | NUR ---
RN NOTES PATIENT RECEIVED ORALLY INTUBATED WITH ETT 7.5 / 22 CM AT LIP CONNECTED TO VENT SETTING AC 28 TV 400 FIO2 100% PEEP 12, RESPONSIVE TO PAIN BUT SEDATED WITH DIPRIVAN. TELE MONITOR REVEALS NSR HR 79. WITH OGT PATENCY CHECKED WITH SMALL AMT THIN SECRETION. CORE TEMPERATURE WAS 100.2 COOLING MEASURES PROVIDED. IV SITE ON CLAUDIA PICC LINE RUNNING WITH DIPRIVAN @ 10 MCG/MIN, LEVOPHED @ 18 MCG/KG/MIN AND D5 NS @ 100 ML./HR. INTACT AND PATENT. IV SITE ON LEFT HAND HL FLUSHED WELL. TURNED AND REPOSITIONED Q 2H AND PRN. PT KEPT CLEAN AND DRY. WILL CONTINUE TO MONITOR.
[2019-02-20] MEDS ORDERED: VANCOMYCIN 500 MG in IV D5W 100 ML IV ONE (20:30)
--- NOTE | 2019-02-20 20:59 | NUR ---
RECEIVED PT INTUBATED 7.5 ETT SECURED AT 22CM AT THE LIP. NO RESP DISTRESS NOTED PT TOLERATING VENT SETTINGS. SX'D FOR MOD AMT OF THIN TINGED SECRETIONS. ETT CUFF BUTTER LIQUEFIER. VENT ALARMS SET AND AUDIBLE. AMBU BAG AT BEDSIDE. WILL CONTINUE TO MONITOR Addendum: 02/20/19 at 2101 by YUE GODINEZ RT Amended: Links added.
[2019-02-20] MEDS: MIRTAZAPINE 15 MG TABLET GT SCH (21:41)
[2019-02-21] VITALS (111 sets, daily range): BP systolic 74–147; BP diastolic 49–80
[2019-02-21] MEDS ORDERED: NOREPINEPHRINE 4 MG/4 ML AMPUL IV ONE (01:20)
[2019-02-21] MEDS: NOREPINEPHRINE 16 MG in IV D5W 500 ML IV PRN ×2 (02:51→17:33)
[2019-02-21] MEDS: IV D5/ 0.9% NACL 1,000 ML IV SCH (02:51)
[2019-02-21 04:52] LABS: BASOPHILS % (AUTO) 0.1 % (0.0-2.0); EOSINOPHILS % (AUTO) 0.1 % (0.0-6.0); HEMATOCRIT 24 % (33-45); HEMOGLOBIN 7.6 g/dL (11.5-14.8); LYMPHOCYTES # (AUTO) 1.4 /CMM (0.8-4.8); LYMPHOCYTES % (AUTO) 11.6 % (20.0-44.0); MEAN CORPUSCULAR HGB CONC 32 g/dl (31.0-36.0); MEAN CORPUSCULAR VOLUME 88 fL (82-100); MONOCYTES # (AUTO) 0.3 /CMM (0.1-1.30); MONOCYTES % (AUTO) 2.7 % (2.0-12.0); NEUTROPHILS # (AUTO) 10.2 /CMM (1.8-8.9); NEUTROPHILS % (AUTO) 85.5 % (43.0-81.0); PLATELET COUNT (AUTO) 56 /CMM (150-450); RED BLOOD CELL COUNT(AUTO) 2.71 MIL/uL (4.0-5.2); WHITE BLOOD COUNT (AUTO) 11.9 K/uL (4.3-11.0)
[2019-02-21 05:28] LABS: ALANINE AMINOTRANSFERASE 22 U/L (12-78); ALKALINE PHOSPHATASE 80 U/L (46-116); ASPARTATE AMINOTRANSFERASE 29 U/L (15-37); BILIRUBIN,DIRECT 0.2 mg/dL (0.0-0.2); BILIRUBIN,TOTAL 0.5 mg/dL (0.2-1.0); CALCIUM, SERUM 7.8 mg/dL (8.5-10.1); CARBON DIOXIDE 20 mmol/L (21-32); CHLORIDE 119 mmol/L (98-107); CREATININE 1.3 mg/dL (0.6-1.3); GLUCOSE 189 mg/dL (74-106); MAGNESIUM 2.1 mg/dL (1.8-2.4); PHOSPHORUS 2.1 mg/dL (2.5-4.9); POTASSIUM 3.7 mmol/L (3.5-5.1); SODIUM SERUM 147 mmol/L (136-145); TOTAL PROTEIN, SERUM 5.3 g/dL (6.4-8.2); UREA NITROGEN, BLOOD 32 mg/dL (7-18)
[2019-02-21] MEDS: MEROPENEM 1 G in IV NS 0.9% 100 ML IV SCH ×2 (05:51→17:16)
[2019-02-21 06:02] LABS: ALBUMIN 1.3 g/dL (3.4-5.0)
[2019-02-21] MEDS: PROPOFOL 100 ML IV PRN ×2 (06:17→22:02)
--- NOTE | 2019-02-21 07:04 | NUR ---
RT PATIENT REC'D ORALLY INTUBATED ON [facility] VENT WITH ORDERED SETTINGS SEN WELL. VENT ALARMS CHECKED + AUDIBLE. PATIENT AIRWAY SUCTIONED AND PATENT. D/S DIM. NAVI CEDEÑO AT HOB. CONT CURRENT PLAN OF CARE. Addendum: 02/21/19 at 1816 by DUANE STEVE RT Amended: Links added.
--- NOTE | 2019-02-21 07:15 | NUR ---
RN NOTES PATIENT REMAINED INTUBATED WITH VENT SETTING TOLERATED WELL. TMAX 100.2 DOWN TO 99 DEG TODAY. NO ACUT ERESPIRATORY DISTRESS. NSR ON TELE MONITOR. CONTINUE WITH SEDATION AND PRESSOR LEVOPHED TITRATED PRTOCOL ORDER. CLAUDIA PICC LINE AND LEH INTACT AND PATENT. NGT INTACT AND FLUSHED WELL. F/C DRAINED VIA GRAVITY WITH SMALL AMT OUTPUT. TODAY PATIENT ALB 1.3 AND LACTIC ACID 5.[address] MELIDA MD AWARE. PHOTO TAKEN FORM ANY SKIN ISSUE. KEPT PT CLEAN AND DRY. ENDORSED CONTINUITY OF CARE TO AM NURSE
--- NOTE | 2019-02-21 07:30 | NUR ---
INSPECTOR PURCHASED PARTS AM NOTES PATIENT IN BED, INTUBATED WITH VENT SETTING AC 28 TV 400 FIO2 100 P 12, TOLERATED WELL. NO ACUTE RESPIRATORY DISTRESS. NSR ON TELE MONITOR. CONTINUE WITH SEDATION PROFOPOL AT 10ML AND PRESSOR LEVOPHED AT 17 ML TITRATED PER PROTOCOL ORDER. CLAUDIA PICC LINE AND LH INTACT AND PATENT. NGT INTACT AND FLUSHED WELL. F/C DRAINED VIA GRAVITY WITH SMALL AMT OUTPUT. KEPT PT CLEAN AND DRY. WILL TURN AND REPOSITION Q 2 HOURS. ON SOFT WRIST RESTRAINT BILATERAL, CHECKED FOR PULSE AND CIRCULATION. WILL CONT TO MONITOR.
[2019-02-21 08:42] LABS: ABG BASE EXCESS -7.2 mmol/L; ABG OXYGEN SATURATION 97.2 % (92.0-98.5); ABG PCO2 41.3 mmHg (35.0-45.0); ABG PO2 115.7 mmHg (75.0-100.0); COHb 0.6 % (0.5-1.5); MetHb 0.8 % (0.0-1.5); O2Hb 95.8 % (94.0-97.0); SITE, ABG Right Radial
[2019-02-21] MEDS: ATORVASTATIN 40 MG TABLET GT SCH (08:42)
[2019-02-21] MEDS: ASPIRIN 81 MG TAB.CHEW GT SCH (08:42)
[2019-02-21] MEDS: SENNOSIDES 8.6 MG TABLET GT SCH ×2 (08:42→17:07)
[2019-02-21] MEDS: FOLIC ACID 1 MG TABLET GT SCH (08:42)
[2019-02-21] MEDS: LEVOTHYROXINE SODIUM 75 MCG TABLET GT SCH (08:48)
[2019-02-21] MEDS: QUETIAPINE FUMARATE 100 MG TABLET GT SCH ×2 (09:00→17:00)
[2019-02-21] MEDS ORDERED: ASPIRIN 81 MG TAB.CHEW GT SCH (09:00)
--- NOTE | 2019-02-21 10:45 | NUR ---
CLINICAL INFORMATICS SPEC NOTES 1015 - SEDATION VACATION DONE 1030 - PT RESTLESS AND BREATHING FAST 1035 - PLACED AT 5 MCG PROFOPOL. CALM AND COOPERATIVE 1045 - PLACED BACK AT 10 MCG PROFOPOL. PATIENT SEDATED.
[2019-02-21] MEDS ORDERED: IV D5W 1,000 ML IV PRN (11:00)
[2019-02-21] MEDS ORDERED: POTASSIUM PHOSPHATE MM 7.5 MMOL in IV D5W 100 ML IV SCH (11:30)
[2019-02-21 12:08] LABS: *SPE A/G RATIO 0.6 (0.7-1.7); *SPE ALBUMIN 1.9 g/dL (2.9-4.4); *SPE ALPHA-1-GLOBULIN 0.3 g/dL (0.0-0.4); *SPE ALPHA-2-GLOBULIN 0.6 g/dL (0.4-1.0); *SPE BETA GLOBULIN 0.7 g/dL (0.7-1.3); *SPE GLOBULIN, TOTAL 3.1 g/dL (2.2-3.9); *SPE M-SPIKE Not Observed g/dL (Not Observed); *SPEGAMMA GLOBULIN 1.5 g/dL (0.4-1.8)
[2019-02-21] MEDS ORDERED: VANCOMYCIN 1 GM in IV D5W 250 ML IV SCH (15:00)
--- NOTE | 2019-02-21 15:00 | NUR ---
CANDLEMAKER NOTES PATIENT WITH ELEVATED TEMP 100.5. DR. ORTIZ AWARE. TYLENOL 650 MG GIVEN AND COOLING MEASURES IN PLACE.
[2019-02-21] MEDS: ACETAMINOPHEN 650 MG/20.3 ML UDC GT PRN (15:18)
[2019-02-21] MEDS: JEVITY 1.2 CAL 1,000 ML BOTTLE GT PRN (17:31)
--- NOTE | 2019-02-21 20:00 | NUR ---
Received patient intubated to vent.And settings well tolerated no respiratory distress noted. SPO2 100%.Patient sedated on Diprivan gtt at 10 mcg & will titrate to sedation.SR with Levophed gtt infusing for BP support and will titrate accordingly.With edema to both hands and feet kept elevated on on pillows.Received with feeding infusing via left NGT and placement verified.No residual noted.HOB elevated.FC to gravity.Will turned and repositioned Q 2 hrs.Maintained on [employer] mattress.
[2019-02-21] MEDS: MIRTAZAPINE 15 MG TABLET GT SCH (22:02)
[2019-02-22] VITALS (108 sets, daily range): BP systolic 69–121; BP diastolic 47–75
--- NOTE | 2019-02-22 | NUR ---
Patient resting in no acute distress.Hemodynamically unstable.Levophed gtt titrated accordingly. NGT tolerating well.No nausea,vomiting or diarrhea noted.Turned and repositioned.
--- NOTE | 2019-02-22 04:00 | NUR ---
Bed bath rendered.Complete linens changed.Oral care.Perineal care and wound care done.Turned and repositioned.
[2019-02-22 04:36] LABS: BASOPHILS % (AUTO) 0.1 % (0.0-2.0); EOSINOPHILS % (AUTO) 0.1 % (0.0-6.0); HEMATOCRIT 22 % (33-45); HEMOGLOBIN 7.1 g/dL (11.5-14.8); LYMPHOCYTES # (AUTO) 1.5 /CMM (0.8-4.8); LYMPHOCYTES % (AUTO) 9.9 % (20.0-44.0); MEAN CORPUSCULAR HGB CONC 32 g/dl (31.0-36.0); MEAN CORPUSCULAR VOLUME 88 fL (82-100); MONOCYTES # (AUTO) 0.2 /CMM (0.1-1.30); MONOCYTES % (AUTO) 1.2 % (2.0-12.0); NEUTROPHILS # (AUTO) 13.1 /CMM (1.8-8.9); NEUTROPHILS % (AUTO) 88.7 % (43.0-81.0); RED BLOOD CELL COUNT(AUTO) 2.52 MIL/uL (4.0-5.2); WHITE BLOOD COUNT (AUTO) 14.8 K/uL (4.3-11.0)
[2019-02-22 04:45] LABS: PLATELET COUNT (AUTO) 7 /CMM (150-450)
[2019-02-22 04:47] LABS: ALANINE AMINOTRANSFERASE 19 U/L (12-78); ALKALINE PHOSPHATASE 110 U/L (46-116); ASPARTATE AMINOTRANSFERASE 33 U/L (15-37); BILIRUBIN,DIRECT 0.2 mg/dL (0.0-0.2); BILIRUBIN,TOTAL 0.7 mg/dL (0.2-1.0); CALCIUM, SERUM 7.8 mg/dL (8.5-10.1); CARBON DIOXIDE 21 mmol/L (21-32); CHLORIDE 114 mmol/L (98-107); CREATININE 0.9 mg/dL (0.6-1.3); GLUCOSE 130 mg/dL (74-106); MAGNESIUM 1.8 mg/dL (1.8-2.4); PHOSPHORUS 1.9 mg/dL (2.5-4.9); POTASSIUM 3.4 mmol/L (3.5-5.1); SODIUM SERUM 146 mmol/L (136-145); TOTAL PROTEIN, SERUM 5.1 g/dL (6.4-8.2); UREA NITROGEN, BLOOD 28 mg/dL (7-18)
[2019-02-22 04:55] LABS: ALBUMIN 1.2 g/dL (3.4-5.0)
[2019-02-22] MEDS: MEROPENEM 1 G in IV NS 0.9% 100 ML IV SCH ×2 (06:00→17:18)
[2019-02-22 06:12] LABS: BAND % (MANUAL) 2 % (0.0-5.0); LYMPHOCYTES % (MANUAL) 10 % (16-48); MONOCYTES % (MANUAL) 3 % (0-11.0); NEUTROPHILS % (MANUAL) 85 (42-76)
--- NOTE | 2019-02-22 06:45 | NUR ---
Patient status unchanged.Platelet CT=7.Rechecked with same result.Called to with orders received.To transfuse 2 units platelets.Will endorse to day shift RN for continuity of care.
--- NOTE | 2019-02-22 07:10 | NUR ---
LOUVER DOOR ASSEMBLER INITIAL NOTES RECEIVED PT FROM NIGHTSHIFT RN IN STABLE CONDITION. PT SEDATED ON PROPOFOL DRIP AT 5MCG/KG/MIN. VENT SETTINGS CHECKED FOR ACCURACY (AC 25, TV 400, FIO2 80%, PEEP 12). PT TOLERATING SETTINGS WELL. PT NOTED TO BE SR ON THE TELE MONITOR WITH A HR OF 80. HUGHES CATHETER NOTED TO BE INTACT AND DRAINING TO GRAVITY. RIGHT UPPER ARM PICC NOTED TO BE C/D/I. PT RECEIVING LEVO DRIP AT 10MCG/MIN. BP STABLE AT THIS TIME. BED IN LOW LOCKED POSITION, SIDE RAILS UP X3, CALL LIGHT WITHIN REACH, BILATERAL SOFT WRIST RESTRAINTS NOTES. GOOD PERIPHERAL PULSES AND CAP REFILL NOTED. WILL CONTINUE TO MONITOR
--- NOTE | 2019-02-22 08:00 | NUR ---
RT RECEIVED PT ORALLY INTUBATED 7.5 ETT SECURED @ 22CM AT THE LIP WITH NOTED SETTINGS. NO RESP DISTRESS NOTED PT TOLERATING VENT SETTINGS. B/S WILLIAM. SXD MOD AMT OF THIN PINK TINGED SECRETIONS. ETT CUFF BLOOD BANK ATTENDANT DONE . VENT ALARMS SET AND AUDIBLE. AMBU BAG AT BEDSIDE. WILL CONTINUE TO MONITOR
[2019-02-22 08:27] LABS: ABG BASE EXCESS -5.8 mmol/L; ABG OXYGEN SATURATION 93.2 % (92.0-98.5); ABG PCO2 44.5 mmHg (35.0-45.0); ABG PH 7.282 (7.350-7.450); ABG PO2 77.3 mmHg (75.0-100.0); AaDO2 446.4 mmHg; COHb 1.2 % (0.5-1.5); MetHb 0.8 % (0.0-1.5); O2Hb 91.3 % (94.0-97.0); PEEP,BG 12 cm H2O; SITE, ABG Left Radial; VT, ABG 400 mL
[2019-02-22] MEDS: LEVOTHYROXINE SODIUM 75 MCG TABLET GT SCH (08:30)
[2019-02-22] MEDS: FOLIC ACID 1 MG TABLET GT SCH (08:30)
[2019-02-22] MEDS: ATORVASTATIN 40 MG TABLET GT SCH (08:30)
[2019-02-22] MEDS: SENNOSIDES 8.6 MG TABLET GT SCH ×2 (08:30→17:00)
--- NOTE | 2019-02-22 08:30 | NUR ---
G DONE AND RESULTS RELAYED TO RN.
[2019-02-22] MEDS: ASPIRIN 81 MG TAB.CHEW GT SCH (08:31)
[2019-02-22] MEDS: QUETIAPINE FUMARATE 100 MG TABLET GT SCH ×2 (08:31→17:00)
--- NOTE | 2019-02-22 09:00 | NUR ---
RT ABG RESULTS SHOW TO DR EL, PER NO CHANGES AT THIS TIME MOMENT.
[2019-02-22] MEDS: ACETAMINOPHEN 650 MG/20.3 ML UDC GT PRN (10:02)
[2019-02-22] MEDS: LACTOBACILLUS RHAMNOSUS GG 1 EACH CAP.SPRINK PO SCH ×2 (10:02→17:19)
[2019-02-22] MEDS ORDERED: NEUTRA PHOS 1 POWD.PACKET GT ONE (11:30)
[2019-02-22] MEDS: NOREPINEPHRINE 16 MG in IV D5W 500 ML IV PRN (12:46)
--- NOTE | 2019-02-22 13:00 | NUR ---
SUGAR CANE FARM MANAGER NOTES: FLEXI SEAL PT NOTED WITH LIQUID STOOL. MADE AWARE. ORDERS OBTAINED FROM MD TO INSERT FLEXI SEAL.
[2019-02-22] MEDS: DOXYCYCLINE 100 MG in IV D5W 100 ML IV SCH ×2 (14:02→23:49)
[2019-02-22] MEDS: FLUCONAZOLE IN NS 100 MG in PREMIX 1 EA IV SCH ×2 (14:58)
--- NOTE | 2019-02-22 15:00 | NUR ---
FINANCIAL ADVISOR TRAINEE NOTES: PLT TRANSFUSION PT S/P 2UNIT OF PLATELETS. PT TOLERATED TRANSFUSIONS WELL. NO ADVERSE REACTIONS NOTED. VSS
[2019-02-22] MEDS: JEVITY 1.2 CAL 1,000 ML BOTTLE GT PRN (17:17)
[2019-02-22] MEDS: IV NS 0.9% 250 ML IV PRN (17:17)
[2019-02-22] MEDS: PANTOPRAZOLE 40 MG VIAL IV SCH (17:19)
[2019-02-22] MEDS: Potassium Chloride 40 MEQ in IV D5W 1,000 ML IV PRN (17:21)
--- NOTE | 2019-02-22 18:51 | NUR ---
HOG OPERATOR CLOSING NOTES PT REMAINS STABLE ON VENTILATOR SUPPORT. VITAL SIGNS STABLE AT THIS TIME. INVASIVE LINES REMAIN PATENT AND INTACT. PT REPOSITIONED AND TURNED PER HOSPITAL PROTOCOL. PRN CARE RENDERED. CONDOM CATH REMAINS C/D/I. FLEXI SEAL REMAINS INTACT AND DRAINING LIQUID STOOL. SAFETY MEASURES REMAIN IN PLACE. WILL ENDORSE TO PANCHO RN FOR GERARDO Addendum: 02/22/19 at 1857 by WISAM CORONEL RN PLEASE DISREGARD THE NOTE
--- NOTE | 2019-02-22 18:55 | NUR ---
RN PATIENT SERVICES CLOSING NOTES PT REMAINS STABLE ON VENTILATOR SUPPORT. VITAL SIGNS STABLE AT THIS TIME. INVASIVE LINES REMAIN PATENT AND INTACT. PT REPOSITIONED AND TURNED PER HOSPITAL PROTOCOL. PRN CARE RENDERED. HUGHES CATH REMAINS C/D/I. FLEXI SEAL INTACT AND DRAINING. SAFETY MEASURES REMAIN IN PLACE. WILL ENDORSE TO NIGHTSHIFT RN FOR GERARDO
--- NOTE | 2019-02-22 19:40 | NUR ---
RN NOTES RECEIVED PT ORALLY INTUBATED WITH ETT 7.5/ 22 CM AT LIP ON VENT SETTING OFAC 28 TV 400 FIO2 80% PEEP 12 TOLERATED WELL. NO ACUTE RESPIRATORY DISTRESS. PATIENT SEDATED WITH DIPRIVAN. NSR ON TELE MONITOR. WITH NGTF OF JEVITY @ 35 ML/HR WITH HIGH RESIDUAL NOTED >200 ML. FEEDING STOP FOR AWHILE AND WILL RECHECKED AGAIN AFTER 2 HOURS. IV SITE ON CLAUDIA PICC LINE RUNNING WITH DIPRIVAN @ 10 MCG/KG/ MIN, LEVOPHED @ 14 MCG/MIN WILL TITRATED ORDERED PROTOCOL AND D5+40 MEQ KCL @ 60 ML/HR INTACT AND PATENT. LFA G 20 HL C/D/I. KEPT PT CLEAN AND DRY. TURNED AND REPOSITIONED. OFFLOADED EXT WITH PILLOWS. WILL CONTINUE TO MONITOR.
[2019-02-22] MEDS: MIRTAZAPINE 15 MG TABLET GT SCH (21:34)
[2019-02-22] MEDS: PROPOFOL 100 ML IV PRN (21:35)
--- NOTE | 2019-02-22 22:07 | NUR ---
RECEIVED PT INTUBATED 7.5 ETT SECURED AT 22CM AT THE LIP. NO RESP DISTRESS NOTED PT TOLERATING VENT SETTINGS. SX'D FOR MOD AMT OF THIN TINGED SECRETIONS. 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 VENT ALARMS SET AND AUDIBLE. AMBU BAG AT BEDSIDE. WILL CONTINUE TO MONITOR. Addendum: 02/22/19 at 2208 by YUE GODINEZ RT Amended: Links added.
[2019-02-23] VITALS (85 sets, daily range): BP systolic 71–115; BP diastolic 42–68
[2019-02-23 04:39] LABS: BASOPHILS % (AUTO) 0.1 % (0.0-2.0); EOSINOPHILS % (AUTO) 0.7 % (0.0-6.0); LYMPHOCYTES # (AUTO) 1.2 /CMM (0.8-4.8); LYMPHOCYTES % (AUTO) 8.5 % (20.0-44.0); MEAN CORPUSCULAR HGB CONC 32 g/dl (31.0-36.0); MEAN CORPUSCULAR VOLUME 87 fL (82-100); MONOCYTES # (AUTO) 0.1 /CMM (0.1-1.30); NEUTROPHILS # (AUTO) 13.1 /CMM (1.8-8.9); NEUTROPHILS % (AUTO) 89.7 % (43.0-81.0); RED BLOOD CELL COUNT(AUTO) 2.33 MIL/uL (4.0-5.2); WHITE BLOOD COUNT (AUTO) 14.6 K/uL (4.3-11.0)
[2019-02-23 04:51] LABS: CALCIUM, SERUM 7.6 mg/dL (8.5-10.1); CARBON DIOXIDE 22 mmol/L (21-32); CHLORIDE 110 mmol/L (98-107); GLUCOSE 150 mg/dL (74-106); PHOSPHORUS 2.7 mg/dL (2.5-4.9); POTASSIUM 3.8 mmol/L (3.5-5.1); SODIUM SERUM 141 mmol/L (136-145); UREA NITROGEN, BLOOD 25 mg/dL (7-18)
[2019-02-23 04:56] LABS: HEMATOCRIT 20 % (33-45)
[2019-02-23 04:58] LABS: HEMOGLOBIN 6.4 g/dL (11.5-14.8); PLATELET COUNT (AUTO) 43 /CMM (150-450)
[2019-02-23 05:06] LABS: FERRITIN 193 ng/mL (8-388)
[2019-02-23 05:11] LABS: EOSINOPHILS % (MANUAL) 1 % (0-4); LYMPHOCYTES % (MANUAL) 5 % (16-48); MONOCYTES % (MANUAL) 2 % (0-11.0); NEUTROPHILS % (MANUAL) 92 (42-76)
[2019-02-23 05:53] LABS: IRON, SERUM 16 ug/dl (50-175); TOTAL IRON BINDING CAPACITY 111 ug/dl (250-450)
[2019-02-23] MEDS: MEROPENEM 1 G in IV NS 0.9% 100 ML IV SCH ×2 (05:55→17:44)
--- NOTE | 2019-02-23 07:10 | NUR ---
RN NOTES CONTINUE ORALLY INTUBATED NO SIGNIFICANT CHANGES PRESENT NO BLEEDING BUT PATIENT HGB IS CRITICALLY LOW 6.4 PLATELET IMPROVE TO 43 BRUCE ICU RN AWARE WITH ORDER OF 1 UNIT PRBC. CONTINUE WITH POC. KEPT PT CLEAN AND DRY. ALL DUE MEDICINE GIVEN ORDERED. ENDORSED CONTINUITY OF CARE TO AM NURSE.
[2019-02-23] MEDS: NOREPINEPHRINE 16 MG in IV D5W 500 ML IV PRN ×2 (07:28→21:12)
--- NOTE | 2019-02-23 07:30 | NUR ---
INITIAL RECEIVED PT STABLE CONDITION. PT SEDATED ON PROPOFOL DRIP AT 10MCG/KG/MIN. VENT SETTINGS CHECKED FOR ACCURACY (AC 25, TV 400, FIO2 80%, PEEP 12). PT TOLERATING SETTINGS WELL. PT NOTED TO BE SR ON THE TELE MONITOR WITH A HR OF 99. HUGHES CATHETER NOTED TO BE INTACT AND DRAINING TO GRAVITY. RIGHT UPPER ARM PICC NOTED TO BE C/D/I. PT RECEIVING LEVO DRIP AT 10MCG/MIN. BP STABLE AT THIS TIME. BED IN LOW LOCKED POSITION, SIDE RAILS UP X3, CALL LIGHT WITHIN REACH, BILATERAL SOFT WRIST RESTRAINTS NOTES. GOOD PERIPHERAL
[2019-02-23 08:29] LABS: ABG BASE EXCESS -3.7 mmol/L; ABG OXYGEN SATURATION 95.2 % (92.0-98.5); ABG PCO2 46.2 mmHg (35.0-45.0); ABG PH 7.303 (7.350-7.450); ABG PO2 87.4 mmHg (75.0-100.0); AaDO2 434.5 mmHg; COHb 1.2 % (0.5-1.5); MetHb 0.8 % (0.0-1.5); O2Hb 93.3 % (94.0-97.0); PEEP,BG 12 cm H2O; SITE, ABG Right Radial
[2019-02-23] MEDS: LACTOBACILLUS RHAMNOSUS GG 1 EACH CAP.SPRINK PO SCH ×2 (09:48→16:28)
[2019-02-23] MEDS: QUETIAPINE FUMARATE 100 MG TABLET GT SCH ×2 (09:48→16:28)
[2019-02-23] MEDS: FOLIC ACID 1 MG TABLET GT SCH (09:48)
[2019-02-23] MEDS: SENNOSIDES 8.6 MG TABLET GT SCH ×2 (09:48→16:28)
[2019-02-23] MEDS: LEVOTHYROXINE SODIUM 75 MCG TABLET GT SCH (09:48)
[2019-02-23] MEDS: ATORVASTATIN 40 MG TABLET GT SCH (09:48)
[2019-02-23] MEDS: ASPIRIN 81 MG TAB.CHEW GT SCH (09:49)
[2019-02-23] MEDS: Potassium Chloride 40 MEQ in IV D5W 1,000 ML IV PRN (10:26)
[2019-02-23] MEDS: DOXYCYCLINE 100 MG in IV D5W 100 ML IV SCH (13:03)
[2019-02-23] MEDS: FLUCONAZOLE IN NS 100 MG in PREMIX 1 EA IV SCH ×2 (13:03)
[2019-02-23] MEDS: PANTOPRAZOLE 40 MG VIAL IV SCH (15:37)
[2019-02-23] MEDS: JEVITY 1.2 CAL 1,000 ML BOTTLE GT PRN (17:14)
--- NOTE | 2019-02-23 18:25 | NUR ---
CLOSING PT REMAINS STABLE ON VENTILATOR SUPPORT. VITAL SIGNS STABLE AT THIS TIME. INVASIVE LINES REMAIN PATENT AND INTACT. PT REPOSITIONED AND TURNED PER HOSPITAL PROTOCOL. PRN CARE RENDERED. HUGHES CATH REMAINS C/D/I. FLEXI SEAL INTACT AND DRAINING. SAFETY MEASURES REMAIN IN PLACE. WILL ENDORSE TO NIGHTSHIFT RN FOR CONTINUITY OF CARE
--- NOTE | 2019-02-23 19:00 | NUR ---
PT REMAINS IN NO ACUTE DISTRESS IN BED. PT IS SEDATED ON DIPRIVAN. PT IS INTUBATED WITH ETT 7.04/06 WITH VENT SETTING @ AC 20, TV 400, FIO2 60, PEEP12. PT IS ON TELE WITH SR-ST ON THE MONITOR. PT HAS FLEXISEAL THAT IS CLEAN DRY INTACT AND PATENT WITH BLACK LIQUID IN COLLECTION CONTAINER. PT HAS F/C THAT IS CLEAN DRY INTACT AND PATENT WITH YELLOW URINE IN COLLECTION BAG. PT HAS CLAUDIA PICC THAT IS CLEAN DRY INTACT WITH DIP @ 5MCG, LEVO @ 40 MCG, AND D5NS+ 40 MEQ K @ 60ML/HR. ALL NEEDS MET, ALL ORDERS CARRIED OUT. WILL CONTINUE TO MONITOR PT.
[2019-02-23] MEDS: MIRTAZAPINE 15 MG TABLET GT SCH (22:00)
[2019-02-24] VITALS (77 sets, daily range): BP systolic 60–123; BP diastolic 41–88
[2019-02-24] MEDS: DOXYCYCLINE 100 MG in IV D5W 100 ML IV SCH ×2 (00:05→12:02)
[2019-02-24] MEDS ORDERED: NOREPINEPHRINE 4 MG/4 ML AMPUL IV ONE (03:46)
[2019-02-24] MEDS: NOREPINEPHRINE 16 MG in IV D5W 500 ML IV PRN ×3 (03:58→18:24)
[2019-02-24] MEDS: Potassium Chloride 40 MEQ in IV D5W 1,000 ML IV PRN (04:18)
[2019-02-24 04:52] LABS: BASOPHILS % (AUTO) 0.1 % (0.0-2.0); EOSINOPHILS % (AUTO) 0.3 % (0.0-6.0); HEMATOCRIT 23 % (33-45); HEMOGLOBIN 7.5 g/dL (11.5-14.8); LYMPHOCYTES % (AUTO) 5.7 % (20.0-44.0); MEAN CORPUSCULAR HGB CONC 33 g/dl (31.0-36.0); MEAN CORPUSCULAR VOLUME 90 fL (82-100); MONOCYTES # (AUTO) 0.4 /CMM (0.1-1.30); MONOCYTES % (AUTO) 2.1 % (2.0-12.0); NEUTROPHILS # (AUTO) 15.5 /CMM (1.8-8.9); NEUTROPHILS % (AUTO) 91.8 % (43.0-81.0); RED BLOOD CELL COUNT(AUTO) 2.55 MIL/uL (4.0-5.2); WHITE BLOOD COUNT (AUTO) 16.9 K/uL (4.3-11.0)
[2019-02-24 05:08] LABS: CALCIUM, SERUM 7.6 mg/dL (8.5-10.1); CARBON DIOXIDE 25 mmol/L (21-32); CHLORIDE 108 mmol/L (98-107); CREATININE 0.9 mg/dL (0.6-1.3); GLUCOSE 211 mg/dL (74-106); POTASSIUM 4.7 mmol/L (3.5-5.1); SODIUM SERUM 138 mmol/L (136-145); UREA NITROGEN, BLOOD 19 mg/dL (7-18)
[2019-02-24 05:28] LABS: PLATELET COUNT (AUTO) 14 /CMM (150-450)
[2019-02-24 05:38] LABS: NEUTROPHILS % (MANUAL) 94 (42-76)
[2019-02-24 05:39] LABS: LYMPHOCYTES % (MANUAL) 5 % (16-48); MONOCYTES % (MANUAL) 1 % (0-11.0)
[2019-02-24] MEDS: MEROPENEM 1 G in IV NS 0.9% 100 ML IV SCH ×2 (05:52→17:52)
--- NOTE | 2019-02-24 06:29 | NUR ---
RT Pt received intubated w 7.5 ETT secured at 23 cm @ lip line. Pt is on mech vent w charted settings and is tolerating well. Alarms are set and audible. Bvm is @ hob. Pt sx'd w no adverse reactions. No respiratory distress noted t/o shift. Addendum: 02/24/19 at 0630 by EDUARDO SAEED RT Amended: Links added.
--- NOTE | 2019-02-24 06:49 | NUR ---
PT REMAINS IN NO ACUTE DISTRESS IN BED. PT DID NOT HAVE ANY SIGNIFICANT CHANGE IN CONDITION DURING SHIFT. ALL NEEDS MET, ALL ORDERS CARRIED OUT. PT TOLERATED VENT SETTING WELL. WILL ENDORSE CARE TO AM RN FOR CONTINUITY OF CARE.
--- NOTE | 2019-02-24 07:19 | NUR ---
INITIAL RECEIVED PT STABLE CONDITION. PT SEDATED ON PROPOFOL DRIP AT 5MCG/KG/MIN. VENT SETTINGS CHECKED FOR ACCURACY (AC 25, TV 400, FIO2 80%, PEEP 12). PT TOLERATING SETTINGS WELL. PT NOTED TO BE SR ON THE TELE MONITOR WITH A HR OF 99. HUGHES CATHETER NOTED TO BE INTACT AND DRAINING TO GRAVITY. RIGHT UPPER ARM PICC NOTED TO BE C/D/I. PT RECEIVING LEVO DRIP AT 34MCG/MIN. BP STABLE AT THIS TIME. BED IN LOW LOCKED POSITION, SIDE RAILS UP X3, CALL LIGHT WITHIN REACH, BILATERAL SOFT WRIST RESTRAINTS NOTES. GOOD PERIPHERAL
[2019-02-24] MEDS: LEVOTHYROXINE SODIUM 75 MCG TABLET GT SCH (07:40)
[2019-02-24] MEDS: PROPOFOL 100 ML IV PRN (07:59)
[2019-02-24] MEDS: ASPIRIN 81 MG TAB.CHEW GT SCH (08:55)
[2019-02-24] MEDS: FOLIC ACID 1 MG TABLET GT SCH (08:55)
[2019-02-24] MEDS: LACTOBACILLUS RHAMNOSUS GG 1 EACH CAP.SPRINK PO SCH ×2 (08:55→16:44)
[2019-02-24] MEDS: ATORVASTATIN 40 MG TABLET GT SCH (08:55)
[2019-02-24] MEDS: SENNOSIDES 8.6 MG TABLET GT SCH ×2 (08:55→16:44)
[2019-02-24] MEDS: QUETIAPINE FUMARATE 100 MG TABLET GT SCH ×2 (08:55→16:44)
--- NOTE | 2019-02-24 09:00 | NUR ---
KAYLEE TAKEN AND RESULTS GIVEN TO DR EL. INCREASED FIO2 TO 75% PER DR EL REQ Addendum: 02/24/19 at 0910 by VA SANFORD RT Amended: Links added.
[2019-02-24 09:01] LABS: ABG BASE EXCESS -2.9 mmol/L; ABG OXYGEN SATURATION 88.1 % (92.0-98.5); ABG PCO2 44.5 mmHg (35.0-45.0); ABG PO2 56.3 mmHg (75.0-100.0); AaDO2 322.6 mmHg; COHb 1.1 % (0.5-1.5); MetHb 1.2 % (0.0-1.5); O2Hb 86.1 % (94.0-97.0); PEEP,BG 12 cm H2O; SITE, ABG Left Radial; VENT MODE, BG AC 28 400 60% +12
[2019-02-24] MEDS: ACETAMINOPHEN 650 MG/20.3 ML UDC GT PRN (10:42)
[2019-02-24] MEDS ORDERED: IV D5/ 0.9% NACL 1,000 ML IV ONE ×2 (11:00→11:30)
[2019-02-24] MEDS: IV D5/ 0.9% NACL 1,000 ML IV PRN (12:34)
[2019-02-24] MEDS: FLUCONAZOLE IN NS 100 MG in PREMIX 1 EA IV SCH ×2 (13:06)
[2019-02-24] MEDS: PANTOPRAZOLE 40 MG VIAL IV SCH (15:26)
[2019-02-24 16:34] LABS: BILIRUBIN,DIRECT 0.2 mg/dL (0.0-0.2); BILIRUBIN,TOTAL 0.7 mg/dL (0.2-1.0); TOTAL PROTEIN, SERUM 5.3 g/dL (6.4-8.2)
[2019-02-24 16:46] LABS: ALBUMIN 1.2 g/dL (3.4-5.0)
--- NOTE | 2019-02-24 17:32 | NUR ---
RT NOTE PT REC'D ORALLY INTUBATED VIA ETT SZ 7.5 SECURED AT 22CM @ THE LIP LINE. PT SHOWS NO SIGNS OF RESP DISTRESS OR SOB. PT SX'D FOR SMALL AMT OF THICK BLOOD TINGED SECRETIONS. ALARMS ARE SET AND AUDIBLE. VENT PLUGGED INTO RED OUTLET. AMBU BAG BEDSIDE. WILL CONTINUE TO MONITOR CLOSELY. Addendum: 02/24/19 at 1733 by VA SANFORD RT Amended: Links added.
[2019-02-24] MEDS: JEVITY 1.2 CAL 1,000 ML BOTTLE GT PRN (17:52)
--- NOTE | 2019-02-24 19:00 | NUR ---
PT REMAINS IN NO ACUTE DISTRESS IN BED. PT IS SEDATED ON DIPRIVAN. PT IS INTUBATED WITH ETT 7.04/06 WITH VENT SETTING @ AC 20, TV 400, FIO2 60, PEEP12. PT IS ON TELE WITH SR-ST ON THE MONITOR. PT HAS FLEXISEAL THAT IS CLEAN DRY INTACT AND PATENT WITH BLACK LIQUID IN COLLECTION CONTAINER. PT HAS F/C THAT IS CLEAN DRY INTACT AND PATENT WITH YELLOW URINE IN COLLECTION BAG. PT HAS CLAUDIA PICC THAT IS CLEAN DRY INTACT WITH DIP @ 5MCG, LEVO @ 36 MCG, AND D5NS @ 60ML/HR. ALL NEEDS MET, ALL ORDERS CARRIED OUT. WILL CONTINUE TO MONITOR PT.
--- NOTE | 2019-02-24 19:22 | NUR ---
PT RECEIVED ORALLY INTUBATED WITH 7.5 ETT SECURED @ 22 CM AT THE LIP ON MECHANICAL VENT W/ NOTED SETTINGS PER MD'S ORDER. PT IS SEDATED. NO RESPIRATORY DISTRESS NOTED AT THIS TIME. VENT ALARMS CHECKED, VENT PLUGGED INTO RED OUTLET, AMBU BAG AT BEDSIDE. SUCTIONED SMALL AMOUNT OF BLOOD TINGED SECRETIONS . ETT PATENT AND SECURED. FOOD PHOTOGRAPHER CUFF PRESSURE NOTED. WILL CONTINUE TO MONITOR THE PT.
[2019-02-24] MEDS: MIRTAZAPINE 15 MG TABLET GT SCH (22:00)
[2019-02-25] VITALS (126 sets, daily range): BP systolic 73–136; BP diastolic 42–85
[2019-02-25] MEDS: DOXYCYCLINE 100 MG in IV D5W 100 ML IV SCH ×2 (00:28→11:23)
[2019-02-25] MEDS: NOREPINEPHRINE 16 MG in IV D5W 500 ML IV PRN ×5 (00:51→21:46)
--- NOTE | 2019-02-25 05:30 | NUR ---
PT DESAT TO 82%. NOTIFIED RT BRANDY AND ATTEMPTED TO SUCTION AND REPLACE O2 SENSOR, BUT PTS SATURATION DID NOT GO UP. BRANDY INCREASED PT FIO2 TO 80%. PT O2 SAT WENT UP TO 95%. WILL CONTINUE TO MONITOR.
[2019-02-25] MEDS: MEROPENEM 1 G in IV NS 0.9% 100 ML IV SCH ×2 (05:56→17:29)
[2019-02-25 06:42] LABS: BASOPHILS % (AUTO) 0.1 % (0.0-2.0); EOSINOPHILS % (AUTO) 0.4 % (0.0-6.0); HEMATOCRIT 22 % (33-45); HEMOGLOBIN 7.1 g/dL (11.5-14.8); LYMPHOCYTES # (AUTO) 0.8 /CMM (0.8-4.8); LYMPHOCYTES % (AUTO) 4.4 % (20.0-44.0); MEAN CORPUSCULAR HGB CONC 33 g/dl (31.0-36.0); MEAN CORPUSCULAR VOLUME 88 fL (82-100); MONOCYTES # (AUTO) 0.4 /CMM (0.1-1.30); MONOCYTES % (AUTO) 2.4 % (2.0-12.0); NEUTROPHILS # (AUTO) 16.3 /CMM (1.8-8.9); NEUTROPHILS % (AUTO) 92.7 % (43.0-81.0); PLATELET COUNT (AUTO) 57 /CMM (150-450); RED BLOOD CELL COUNT(AUTO) 2.44 MIL/uL (4.0-5.2); WHITE BLOOD COUNT (AUTO) 17.6 K/uL (4.3-11.0)
[2019-02-25 06:58] LABS: CALCIUM, SERUM 7.9 mg/dL (8.5-10.1); CARBON DIOXIDE 25 mmol/L (21-32); CHLORIDE 108 mmol/L (98-107); CREATININE 0.7 mg/dL (0.6-1.3); GLUCOSE 196 mg/dL (74-106); SODIUM SERUM 140 mmol/L (136-145); UREA NITROGEN, BLOOD 16 mg/dL (7-18)
[2019-02-25] MEDS: IV D5/ 0.9% NACL 1,000 ML IV PRN (07:06)
--- NOTE | 2019-02-25 07:20 | NUR ---
ADHESION TESTER: pt.was desaturated over night by report, got suctioned,lavage, O2sat. over 94% now, no SOB, FiO2 80%, peep 12, on Levophed gtt 38 mcg/m now, SBP 120 now, will titrate, RT will take ABG, on wrists restraints, 5mcg/kg/m Diprivan gtt, trace reaction by pain stimuli, will stop sedation for sedation vacation and neuro status evaluation, NGTF residual WNL, no acute bleeding by report, platelets 57, T WNL, Hb 7.1
[2019-02-25 07:54] LABS: ABG BASE EXCESS -0.8 mmol/L; ABG PCO2 54.3 mmHg (35.0-45.0); ABG PH 7.295 (7.350-7.450); AaDO2 443.4 mmHg; COHb 1.1 % (0.5-1.5); O2Hb 90.1 % (94.0-97.0); PEEP,BG 12 cm H2O; SITE, ABG Right Radial; VENT MODE, BG AC 28 400 +12 80%; VT, ABG 400 mL
[2019-02-25 08:06] LABS: BAND % (MANUAL) 11 % (0.0-5.0); EOSINOPHILS % (MANUAL) 1 % (0-4); LYMPHOCYTES % (MANUAL) 2 % (16-48); MONOCYTES % (MANUAL) 2 % (0-11.0); NEUTROPHILS % (MANUAL) 84 (42-76)
[2019-02-25] MEDS: LEVOTHYROXINE SODIUM 75 MCG TABLET GT SCH (08:07)
--- NOTE | 2019-02-25 08:09 | NUR ---
TRANSIT DEPARTMENT CLERK: pt.was without sedation 40 min, little grimacing only with pain stimuli, unable to open eyes, got tachypnea, RR 30-36, ST 110-120, SBP [id number], ABG now pH 7.29/54/70/25, resumed sedation, paged : changed Tv to 450
[2019-02-25] MEDS: ASPIRIN 81 MG TAB.CHEW GT SCH (08:44)
[2019-02-25] MEDS: ATORVASTATIN 40 MG TABLET GT SCH (08:44)
[2019-02-25] MEDS: FOLIC ACID 1 MG TABLET GT SCH (08:45)
[2019-02-25] MEDS: LACTOBACILLUS RHAMNOSUS GG 1 EACH CAP.SPRINK PO SCH ×2 (08:45→16:56)
[2019-02-25] MEDS: QUETIAPINE FUMARATE 100 MG TABLET GT SCH ×2 (08:45→16:56)
[2019-02-25] MEDS: SENNOSIDES 8.6 MG TABLET GT SCH ×2 (08:45→16:56)
--- NOTE | 2019-02-25 09:30 | NUR ---
SPEECH LANGUAGE THERAPIST: SBP is over 90, continue titrate pressor
[2019-02-25] MEDS: ACETAMINOPHEN 650 MG/20.3 ML UDC GT PRN (10:33)
--- NOTE | 2019-02-25 11:15 | NUR ---
PHP WORDPRESS DEVELOPER: is in room, updated with pt.current condition, VS, Levophed gtt, sedation level, I/O, NGTF, IVF, see new orders
[2019-02-25] MEDS: FLUCONAZOLE IN NS 100 MG in PREMIX 1 EA IV SCH ×2 (11:23)
[2019-02-25] MEDS ORDERED: PHENYLEPHRINE 80 MG in IV D5W 250 ML IV PRN (12:00)
[2019-02-25] MEDS ORDERED: ONDANSETRON HCL/PF 4 MG/2 ML VIAL ONE (12:12)
--- NOTE | 2019-02-25 12:20 | NUR ---
SPOKE TO PATIENT GRANDSON BUSHRA AND UPDATED WITH PATIENT STATUS. PATIENT NEED TO BE STARTED ON 2ND PRESSOR TO SUPPORT BP. PATIENT REMAINS ON HIGH VENT SETTINGS WITH NO WEANING. PER GRANDSON-PATIENT REMAINS FULLCODE-NEED TO SPEAK TO HIS MOTHER REGARDING PATIENT CONDITION AND DISCUSSED CODE STATUS.
--- NOTE | 2019-02-25 13:31 | NUR ---
PT RECEIVED ORALLY INTUBATED IN ICU ON MECHANICAL VENT W/ SETTINGS PER MD. VENT IN RED OUTLET, VENT ALARMS CHECKED AND AUDIBLE. ETT PATENT AND SECURED W/ ANCHOFAST. AUTOMATIC I THREADING MACHINE FEEDER DONE. BREATH SOUNDS EQUAL, DIMINISHED. PT SX'ED AND LAVAGED PRN. NO RESP DISTRESS NOTED. PT TOLERATES CURRENT VENT SETTINGS. PLAN IS CONTINUE CARE UNDER CURRENT MD ORDERS AND MONITOR FOR CHANGES. Addendum: 02/25/19 at 1333 by MAGGIE SAENZ RT Amended: Links added.
--- NOTE | 2019-02-25 14:10 | NUR ---
PARKING ASSISTANT: Tobin,COMMODITY MERCHANT updated with pt.VS, sedation level, Levophed, gtts, Levo gtt max now, IVF, NGTF, I/O, ABG, vent setting, spoke with grandson Carroll with details re pt.condition, POC, code status, Carroll needs to speak with mother re possible code status change, see new orders
--- NOTE | 2019-02-25 15:20 | NUR ---
HVAC SERVICE TECHNICIAN: pt.daughter, family is room, got detailed info re pt.current condition, VS, 2 IV pressors, sedation level/sedation vacation reaction, FiO80%, peep12, labs with bleeding risk, meds, T, suctions amount, got explanations re different statuses: Full code, DNR, chemical code only, comfortable care, still consider decision
[2019-02-25] MEDS: PANTOPRAZOLE 40 MG VIAL IV SCH (16:19)
[2019-02-25] MEDS ORDERED: LEVOFLOXACIN 500 MG /D5W 100ML 500 MG in PREMIX 1 EA IV ONE (17:00)
--- NOTE | 2019-02-25 17:06 | NUR ---
SOFTWARE INTEGRATOR: pt.is sedated well, grimacing with pain stimuli, SR, Levo gtt max dose, gtt 100 mcg/m now, O2sat. over 96%, FiO2 80%, peep 12, no SOB, PM, skin, wound care done, ChayitoAURA was in room, updated, see new orders, pt.family is at BS, no any new decision, small lower lip bleeding/fixed/changed dressing, suctioned well
[2019-02-25] MEDS: PROPOFOL 100 ML IV PRN ×2 (17:30→21:20)
--- NOTE | 2019-02-25 17:30 | NUR ---
FINAL ASSEMBLY AND PACKING SUPERVISOR: is in room/updated, spoke with family, see new orders
--- NOTE | 2019-02-25 19:22 | NUR ---
RT NOTE PATIENT RECEIVED ON AC 28, 450, 80%, +12. CUFF CHECKED VIA CHIEF RADIATION THERAPIST. VENT PLUGGED INTO RED OUTLET. 7.5 ETT TUBE @ 23CM ON LEFT. AMBU BAG @ HOB. TX GIVEN, NO ADVERSE REACTIONS NOTED. SX DONE, ET TUBE SECURED AND PATENT. ALARMS ON AND AUDIBLE. PATIENT WITH BLOOD ON LIP. NURSE AWARE. WILL CONTINUE TO MONITOR. Addendum: 02/25/19 at 192 by DANELLE ROSALES RT Amended: Links added. Addendum: 02/25/19 at 1956 by DANELLE ROSALES RT 7.5 ET TUBE @ 22CM ON LEFT. NO TX GIVEN, WRONG PATIENT DOCUMENTED.
--- NOTE | 2019-02-25 19:30 | NUR ---
CORPORATE ETHICS OFFICER RCD PT W/DX ACUTE RESP FAIL. PT IS SEDATED ON PROPOFOL 10 MCG/KG/MIN WELL BSWR IN PLACE TO PREVENT SELF EXTUBATION. PT IS NSR ON MONITOR. PT ON LEVOPHED AT 40 MCG/MIN AND NEOSYNEPHRINE AT 160 MCG/MIN TO MAINTAIN SBP >90. FLEXI SEAL WITH MIN OUTPUT. HUGHES CATH WITH ADEQUATE AMOUNT OF YELLOW URINE OUTPUT. DTI NOTED TO SACRAL AREA W/MEPILEX IN PLACE. PT TO BE TURNED AND REPOSITIONED Q2HRS AND NEEDED. JEVITY AT 35 ML/HR VIA LEFT NARE NG TUBE. NO RESIDUAL NOTED AT THIS TIME. CLAUDIA PICC PATENT WITH SLUGGISH BLOOD RETURN. FIBRINOGEN RESULTS PENDING.
[2019-02-25] MEDS: PHENYLEPHRINE 80 MG in IV D5W 250 ML IV PRN (21:45)
[2019-02-25] MEDS: MIRTAZAPINE 15 MG TABLET GT SCH (22:00)
--- NOTE | 2019-02-25 22:00 | NUR ---
COMPUTER APPLICATION DEVELOPER MULTIPLE FAMILY MEMBERS AT BEDSIDE. UPDATED ON PLAN OF CARE.
--- NOTE | 2019-02-25 22:43 | NUR ---
WARP KNITTING MACHINE OPERATOR FIBRINOGEN RESULTS NOT RESULTED IN EMR. CALLED LAB AND THEY WERE FINALLY ABLE TO RELEASE IT AT THIS TIME. LEVEL 60. STANDING ORDER TO TRANSFUSE 10 UNITS CRYOPRECIPITATE. NO ACTIVE S/O BLEEDING. CONTINUE TO MONITOR.
[2019-02-25 23:29] LABS: D-DIMER 18.1 mg/L(FEU (0.17-0.50)
[2019-02-26] VITALS (132 sets, daily range): BP systolic 65–127; BP diastolic 40–76
[2019-02-26] MEDS: JEVITY 1.2 CAL 1,000 ML BOTTLE GT PRN
--- NOTE | 2019-02-26 00:20 | NUR ---
FREIGHT HUSTLER RCD CALL FROM ASHLEE IN LAB SINCE PT IS AB POSITIVE CRYOPRECIPITATE NEEDS TO BE ORDERED FROM [facility]. PER ASHLEE SHE WILL CALL ONCE IT IS AVAILABLE. CONTINUE TO MONITOR.
[2019-02-26] MEDS: PROPOFOL 100 ML IV PRN (01:40)
[2019-02-26] MEDS: IV D5/ 0.9% NACL 1,000 ML IV PRN (01:59)
[2019-02-26] MEDS: ACETAMINOPHEN 650 MG/20.3 ML UDC GT PRN (01:59)
[2019-02-26] MEDS: IV NS 0.9% 250 ML IV PRN (04:08)
[2019-02-26] MEDS: NOREPINEPHRINE 16 MG in IV D5W 500 ML IV PRN ×3 (04:08→17:53)
[2019-02-26] MEDS: MEROPENEM 1 G in IV NS 0.9% 100 ML IV SCH ×2 (06:00→17:06)
--- NOTE | 2019-02-26 06:49 | NUR ---
CONTROL SYSTEMS ENGINEER NEOSYNEPHRINE TITRATED OFF; 10 UNITS CRYOPRECIPITATE GIVEN. PT TOLERATED WELL.
[2019-02-26] MEDS: LEVOTHYROXINE SODIUM 75 MCG TABLET GT SCH (07:14)
--- NOTE | 2019-02-26 07:33 | NUR ---
REMELT PAN TANK OPERATOR: pt.sedated with 10 mcg/kg/m Diprivan, grimacing with light pain/touch stimuli, trace activity, unable to open eyes, on wrists restraints, rest, O2sat. over 96%, on SOB, FiO2 80%, peep 12, ST 100-120, on Levophed gtt, continue titrate, suctioned well, NGTF residual WNL
[2019-02-26 07:55] LABS: ABG OXYGEN SATURATION 89.7 % (92.0-98.5); ABG PCO2 51.8 mmHg (35.0-45.0); ABG PH 7.321 (7.350-7.450); ABG PO2 62.9 mmHg (75.0-100.0); AaDO2 453.1 mmHg; COHb 1.1 % (0.5-1.5); O2Hb 87.8 % (94.0-97.0); PEEP,BG 12 cm H2O; SITE, ABG Right Radial
[2019-02-26] MEDS: LACTOBACILLUS RHAMNOSUS GG 1 EACH CAP.SPRINK PO SCH ×2 (08:02→17:05)
[2019-02-26] MEDS: ASPIRIN 81 MG TAB.CHEW GT SCH (08:02)
[2019-02-26] MEDS: QUETIAPINE FUMARATE 100 MG TABLET GT SCH ×2 (08:03→17:05)
[2019-02-26] MEDS: ATORVASTATIN 40 MG TABLET GT SCH (08:03)
[2019-02-26] MEDS: FOLIC ACID 1 MG TABLET GT SCH (08:03)
[2019-02-26] MEDS: SENNOSIDES 8.6 MG TABLET GT SCH ×3 (08:16→17:00)
--- NOTE | 2019-02-26 08:20 | NUR ---
GWOT IA/ILO INTELLIGENCE SUPPORT: ABG done: pH 7.32/51/62/25, O2sat. down to 88-90% now, RR 29-32, RT increased FiO2 to 100%, increased sedation to 15 mcg/kg/m Diprivan, ST 120, SBP over 90, agricultural engineer is in unit/notified
--- NOTE | 2019-02-26 08:25 | NUR ---
RT NOTE PATIENT RECEIVED ON AC 28, 450, 80%, +12. CUFF CHECKED VIA CLINIQUE COUNTER MANAGER. VENT PLUGGED INTO RED OUTLET. 7.5 ETT TUBE @ 23CM ON LEFT. AMBU BAG @ HOB. TX GIVEN, NO ADVERSE REACTIONS NOTED. SX DONE, ET TUBE SECURED AND PATENT. ALARMS ON AND AUDIBLE. PATIENT WITH BLOOD ON LIP. NURSE AWARE. WILL CONTINUE TO MONITOR.
--- NOTE | 2019-02-26 09:15 | NUR ---
DOPE MAINTENANCE WORKER: is room, updated with pt.current condition, ABG, FiO2 100%, peep12 now, bloody suction amount, VS, sedation level, Levophed gtt max now, will restart gtt, I/O, NGTF, IVF, platelets [id number] 02/25/19, 10 units Cryoprecipitate were given last night, no lab morning time resulted, see new orders
[2019-02-26] MEDS: DOXYCYCLINE 100 MG in IV D5W 100 ML IV SCH ×3 (11:16)
[2019-02-26] MEDS: FLUCONAZOLE IN NS 100 MG in PREMIX 1 EA IV SCH ×2 (11:17)
--- NOTE | 2019-02-26 11:54 | NUR ---
QUILT SEWER: Tobin, ENTEROSTOMAL NURSE is in room, updated with pt.current condition, VS, sedation level, 2 pressors, ABG, vent.setting, I/O, NGTF, IVF, 10 units cryoprecipitate transfusion last night, multiple conversation with pt.family re Dx, prognosis, POC, ordered CBC, Bmp now
[2019-02-26 13:02] LABS: CARBON DIOXIDE 25 mmol/L (21-32); CHLORIDE 110 mmol/L (98-107); CREATININE 0.7 mg/dL (0.6-1.3); GLUCOSE 190 mg/dL (74-106); POTASSIUM 3.7 mmol/L (3.5-5.1); SODIUM SERUM 141 mmol/L (136-145); UREA NITROGEN, BLOOD 15 mg/dL (7-18)
[2019-02-26] MEDS: PHENYLEPHRINE 80 MG in IV D5W 250 ML IV PRN (13:28)
[2019-02-26 13:40] LABS: BASOPHILS % (AUTO) 0.2 % (0.0-2.0); EOSINOPHILS % (AUTO) 0.7 % (0.0-6.0); LYMPHOCYTES # (AUTO) 1.1 /CMM (0.8-4.8); LYMPHOCYTES % (AUTO) 7.3 % (20.0-44.0); MEAN CORPUSCULAR HGB CONC 33 g/dl (31.0-36.0); MEAN CORPUSCULAR VOLUME 89 fL (82-100); MONOCYTES # (AUTO) 0.5 /CMM (0.1-1.30); MONOCYTES % (AUTO) 3.6 % (2.0-12.0); NEUTROPHILS # (AUTO) 12.9 /CMM (1.8-8.9); NEUTROPHILS % (AUTO) 88.2 % (43.0-81.0); RED BLOOD CELL COUNT(AUTO) 2.25 MIL/uL (4.0-5.2); WHITE BLOOD COUNT (AUTO) 14.6 K/uL (4.3-11.0)
[2019-02-26 13:42] LABS: HEMATOCRIT 20 % (33-45); HEMOGLOBIN 6.5 g/dL (11.5-14.8)
[2019-02-26 13:43] LABS: PLATELET COUNT (AUTO) 48 /CMM (150-450)
--- NOTE | 2019-02-26 13:51 | NUR ---
ASPHALT SPREADER: H/H 6.04/04 now, platelets [id number] now, notified YASEMIN Rudd, ordered: one PRBC unit BT
[2019-02-26 13:57] LABS: BAND % (MANUAL) 5 % (0.0-5.0); LYMPHOCYTES % (MANUAL) 5 % (16-48); MONOCYTES % (MANUAL) 6 % (0-11.0); NEUTROPHILS % (MANUAL) 84 (42-76)
[2019-02-26] MEDS: PANTOPRAZOLE 40 MG VIAL IV SCH (15:12)
[2019-02-26] MEDS: LEVOFLOXACIN 250 MG /D5W 50 ML 250 MG in PREMIX 1 EA IV SCH (17:05)
--- NOTE | 2019-02-26 18:15 | NUR ---
CALL CENTER DIRECTOR: is in room, updated with pt.VS, ETT bloody suctions amount, labs, sedation level, 2x pressors, vent setting, one unit PRBC running now, I/O, IVF, said: will order one unit platelets pheresis, see new orders, ptshimon called before, updated with pt.VS, orders, current condition, pressors, sedation, BT, POC. PM,skin,wound care done
[2019-02-26] MEDS ORDERED: diphenhydrAMINE HCL 50 MG/ML VIAL IV ONE (18:30)
[2019-02-26] MEDS ORDERED: ACETAMINOPHEN 325 MG TABLET PO ONE (18:30)
--- NOTE | 2019-02-26 21:15 | NUR ---
WASHHOUSE WORKER PTS BL SOFT WRIST RESTRAINTS REMOVED PT NOT RESPONDING TO STIMULI. PT NOTED WITH LABORED RESPIRATIONS PROPOFOL INCREASED TP 25 MCG/KG/MIN. FAMILY REMAINS AT BEDSIDE. CONTINUES TO WISH FULL CARE TO PT. CONTINUE TO MONITOR.
[2019-02-26 21:22] LABS: D-DIMER 15.42 mg/L(FEU (0.17-0.50)
--- NOTE | 2019-02-26 21:23 | NUR ---
ELECTRIC DRILL OPERATOR RCD CALL FROM LAB [facility] 19; PLATELET TRANSFUSION PENDING ARRIVAL FROM [facility] [place]. PT WITH MINOR BLEEDING FROM LIPS. CONTINUE TO MONITOR.
[2019-02-26] MEDS: MIRTAZAPINE 15 MG TABLET GT SCH (21:55)
[2019-02-27] VITALS (122 sets, daily range): BP systolic 74–111; BP diastolic 42–64
[2019-02-27] MEDS: IV NS 0.9% 250 ML IV PRN
[2019-02-27] MEDS: PROPOFOL 100 ML IV PRN
[2019-02-27] MEDS: NOREPINEPHRINE 16 MG in IV D5W 500 ML IV PRN ×4 (00:01→19:11)
--- NOTE | 2019-02-27 03:00 | NUR ---
JOINTER MACHINE OPERATOR PT NOTED WITH INCREASED RESPIRATIONS, TACHY CARDIA AND LOW SATURATION DURING ADLs. PROPOFOL INCREASED PER PROTOCOL. CONTINUE TO MONITOR.
--- NOTE | 2019-02-27 04:30 | NUR ---
CLIP RIVETER PT NOTED WITH SBP DROPPING AFTER ADLs; LEVOPHED AT 40 MCG/MIN AND NEOSYNEPHRINE INCREASED PER PROTOCOL. CONTINUE TO MONITOR.
[2019-02-27] MEDS: IV D5/ 0.9% NACL 1,000 ML IV PRN ×2 (05:15→23:00)
[2019-02-27] MEDS: MEROPENEM 1 G in IV NS 0.9% 100 ML IV SCH ×2 (05:15→17:28)
[2019-02-27 05:48] LABS: D-DIMER 17.65 mg/L(FEU (0.17-0.50)
--- NOTE | 2019-02-27 06:56 | NUR ---
METAL COATER [facility] DID NOT ARRIVE FROM [facility] [place]; WILL ENDORSE TO NEXT SHIFT TO TRANSFUSE AND PRE MEDICATE WITH BENADRYL AND TYLENOL PRIOR TO TRANSFUSION. CONTINUE TO MONITOR. ONLY BLEEDING NOTED FROM LIPS.
[2019-02-27 07:14] LABS: ABG OXYGEN SATURATION 97.1 % (92.0-98.5); ABG PCO2 45.8 mmHg (35.0-45.0); ABG PH 7.349 (7.350-7.450); ABG PO2 107.5 mmHg (75.0-100.0); AaDO2 559.7 mmHg; COHb 0.7 % (0.5-1.5); MetHb 0.7 % (0.0-1.5); O2Hb 95.7 % (94.0-97.0); PEEP,BG 12 cm H2O; SITE, ABG Right Radial; VENT MODE, BG A/C 28; VT, ABG 450 mL
--- NOTE | 2019-02-27 08:37 | NUR ---
DECREASED FIO2 FROM 100% TO 90% DUE TO [id number] AND SPO2 99% Addendum: 02/27/19 at 0838 by ALAN ANGULO RT Amended: Links added.
[2019-02-27] MEDS: SENNOSIDES 8.6 MG TABLET GT SCH ×2 (09:00→17:00)
--- NOTE | 2019-02-27 09:00 | NUR ---
PT WEANED OF PROPOFOL PER POLICY, REACTS TO TACTILE STIMULATION, NO EYE OPENING YET. WILL CONTINUE TO MONITOR.
[2019-02-27 09:23] LABS: BASOPHILS % (AUTO) 0.2 % (0.0-2.0); EOSINOPHILS % (AUTO) 0.4 % (0.0-6.0); HEMATOCRIT 23 % (33-45); HEMOGLOBIN 7.7 g/dL (11.5-14.8); LYMPHOCYTES # (AUTO) 1.1 /CMM (0.8-4.8); LYMPHOCYTES % (AUTO) 8.3 % (20.0-44.0); MEAN CORPUSCULAR HGB CONC 33 g/dl (31.0-36.0); MEAN CORPUSCULAR VOLUME 85 fL (82-100); MONOCYTES # (AUTO) 0.6 /CMM (0.1-1.30); MONOCYTES % (AUTO) 4.2 % (2.0-12.0); NEUTROPHILS # (AUTO) 12.1 /CMM (1.8-8.9); NEUTROPHILS % (AUTO) 86.9 % (43.0-81.0); RED BLOOD CELL COUNT(AUTO) 2.73 MIL/uL (4.0-5.2); WHITE BLOOD COUNT (AUTO) 13.9 K/uL (4.3-11.0)
[2019-02-27 09:30] LABS: CARBON DIOXIDE 25 mmol/L (21-32); CHLORIDE 109 mmol/L (98-107); CREATININE 0.8 mg/dL (0.6-1.3); GLUCOSE 129 mg/dL (74-106); POTASSIUM 3.7 mmol/L (3.5-5.1); SODIUM SERUM 141 mmol/L (136-145); UREA NITROGEN, BLOOD 15 mg/dL (7-18)
[2019-02-27] MEDS: FOLIC ACID 1 MG TABLET GT SCH (09:40)
[2019-02-27] MEDS: LACTOBACILLUS RHAMNOSUS GG 1 EACH CAP.SPRINK PO SCH ×2 (09:40→17:04)
[2019-02-27] MEDS: ATORVASTATIN 40 MG TABLET GT SCH (09:40)
[2019-02-27] MEDS: QUETIAPINE FUMARATE 100 MG TABLET GT SCH ×2 (09:40→17:04)
[2019-02-27] MEDS: ASPIRIN 81 MG TAB.CHEW GT SCH (09:40)
[2019-02-27] MEDS: LEVOTHYROXINE SODIUM 75 MCG TABLET GT SCH (09:42)
[2019-02-27 09:55] LABS: PLATELET COUNT (AUTO) 15 /CMM (150-450)
[2019-02-27] MEDS: ACETAMINOPHEN 650 MG/20.3 ML UDC GT PRN ×2 (10:28→18:39)
[2019-02-27] MEDS ORDERED: diphenhydrAMINE HCL 50 MG/ML VIAL IV PRN (10:30)
[2019-02-27 10:53] LABS: BAND % (MANUAL) 4 % (0.0-5.0); EOSINOPHILS % (MANUAL) 2 % (0-4); LYMPHOCYTES % (MANUAL) 6 % (16-48); MONOCYTES % (MANUAL) 3 % (0-11.0); NEUTROPHILS % (MANUAL) 85 (42-76)
--- NOTE | 2019-02-27 11:08 | NUR ---
SHIFT BACK TO 100% DUE TO SPO2 86%. Addendum: 02/27/19 at 1108 by ALAN ANGULO RT Amended: Links added.
--- NOTE | 2019-02-27 11:30 | NUR ---
PT NOT ABLE TO TOLERATE FIO2 OF 90, NOW BACK ON 100%.
[2019-02-27] MEDS: DOXYCYCLINE 100 MG in IV D5W 100 ML IV SCH ×4 (11:47→23:59)
--- NOTE | 2019-02-27 12:00 | NUR ---
ON UNIT OF [facility]ATE[facility] TRANSFUSED. TO DAY PL 15. DR DELUNA CALLED AWAITING [facility] CALL BACK.
[2019-02-27] MEDS: FLUCONAZOLE IN NS 100 MG in PREMIX 1 EA IV SCH ×2 (12:30)
--- NOTE | 2019-02-27 15:00 | NUR ---
FULL BED BATH, SKIN AND ORAL CARE. STILL COPIOUS AMOUNT OF BLEEDING RIGHT LOVER LIP, DRESSING CHANGED PRN.
[2019-02-27] MEDS: JEVITY 1.2 CAL 1,000 ML BOTTLE GT PRN (15:06)
[2019-02-27] MEDS: PHENYLEPHRINE 80 MG in IV D5W 250 ML IV PRN (15:39)
[2019-02-27] MEDS: PANTOPRAZOLE 40 MG VIAL IV SCH (15:58)
--- NOTE | 2019-02-27 17:00 | NUR ---
PT HAS STRONG COUGH AND GAG REFLEX, VOMITED SMALL AMOUNT OF GASTRIC CONTENT DURING BATH, SUCTIONED ORALLY AND NASALLY TO PREVENT ASPIRATION. NO GASTRIC CONTENT RESENT DURING SUCTIONING. LUNG SOUNDS ARE CLEAR.
--- NOTE | 2019-02-27 17:00 | NUR ---
PATIENT MCKENZIE TOMLINSON CALLED RE: BIOETHICS MEETING TOMORROW REQUESTED BY ATTENDING MD. AVAILABLE ONLY [place] 11-12 PM. RICKI MO MADE AWARE.
[2019-02-27] MEDS: LEVOFLOXACIN 250 MG /D5W 50 ML 250 MG in PREMIX 1 EA IV SCH (17:06)
--- NOTE | 2019-02-27 18:56 | NUR ---
STARTING 18:25 TP NOTED TO DESATURATE TO 88-87% ALREADY ON 100% FIO2. DR CHIN PAGED.
--- NOTE | 2019-02-27 18:59 | NUR ---
DR LAU CONTACTED AGAIN FOR UPDATE ON PLATELETS.
--- NOTE | 2019-02-27 19:00 | NUR ---
FAMILY AT BEDSIDE. NOTIFIED THAT PT PROGNOSIS IS POOR AND NEED BIOETHIC MEETING. EMOTIONAL SUPPORT PROVIDED.
--- NOTE | 2019-02-27 19:03 | NUR ---
PT OFF SEDATION NOW FOR 10H. REACTS TO PAIN ONLY.
--- NOTE | 2019-02-27 19:20 | NUR ---
OCULAR CARE AIDE EXTENSIVE TALK WITH PTS DAUGHTER REGARDING POOR PROGNOSIS AND CODE STATUS. PER DAUGHTER SHE WISHES FOR PT TO REMAIN FULL CODE. CONTINUE TO MONITOR.
--- NOTE | 2019-02-27 19:30 | NUR ---
LANDMEN RCD PT COMATOSE; OFF SEDATION SINCE MORNING DOES NOT RESPOND TO STIMULI. ST 130 ON MONITOR. INTUBATED W/VENT SETTINGS AC 28 450 100% +12; PT NOTED WITH SATURATION 86% MD AWARE W/NO NEW ORDERS. PT CONTINUES BLEEDING FROM LIPS. DRESSING CHANGED. JEVITY 1.2 VIA LEFT NARE NO RESIDUAL NOTED. CONTINUE TO MONITOR.
--- NOTE | 2019-02-27 21:00 | NUR ---
HANDKERCHIEF FOLDER WEANED OFF SAIDA PER PROTOCOL BP 106/56. CONTINUE TO MONITOR.
[2019-02-27] MEDS: MIRTAZAPINE 15 MG TABLET GT SCH (21:20)
[2019-02-28] VITALS (84 sets, daily range): BP systolic 76–144; BP diastolic 43–82
[2019-02-28] MEDS: ACETAMINOPHEN 650 MG/20.3 ML UDC GT PRN (00:39)
--- NOTE | 2019-02-28 00:46 | NUR ---
LEAD FORMER TEMP 100.2 TYLENOL GIVEN. INITIATED COOLING MEASURES. CONTINUE TO MONITOR.
[2019-02-28] MEDS: NOREPINEPHRINE 16 MG in IV D5W 500 ML IV PRN ×2 (02:59→20:26)
[2019-02-28 04:38] LABS: BASOPHILS % (AUTO) 0.2 % (0.0-2.0); EOSINOPHILS % (AUTO) 0.1 % (0.0-6.0); LYMPHOCYTES # (AUTO) 0.8 /CMM (0.8-4.8); LYMPHOCYTES % (AUTO) 7.4 % (20.0-44.0); MEAN CORPUSCULAR HGB CONC 33 g/dl (31.0-36.0); MEAN CORPUSCULAR VOLUME 86 fL (82-100); MONOCYTES # (AUTO) 0.5 /CMM (0.1-1.30); MONOCYTES % (AUTO) 5.1 % (2.0-12.0); NEUTROPHILS % (AUTO) 87.2 % (43.0-81.0); WHITE BLOOD COUNT (AUTO) 10.3 K/uL (4.3-11.0)
--- NOTE | 2019-02-28 04:43 | NUR ---
CONTRACTS LAW PROFESSOR PT BECAME HYPOTENSIVE AND DESATURATED POST CXR; TITRATED LEVOPHED PER PROTOCOL. CONTINUE TO MONITOR. PT ON 1005 FIO2.
[2019-02-28 04:52] LABS: CARBON DIOXIDE 26 mmol/L (21-32); CHLORIDE 106 mmol/L (98-107); CREATININE 0.8 mg/dL (0.6-1.3); GLUCOSE 124 mg/dL (74-106); POTASSIUM 3.9 mmol/L (3.5-5.1); SODIUM SERUM 138 mmol/L (136-145); UREA NITROGEN, BLOOD 18 mg/dL (7-18)
[2019-02-28] MEDS: MEROPENEM 1 G in IV NS 0.9% 100 ML IV SCH ×2 (05:00→17:45)
[2019-02-28 05:15] LABS: HEMATOCRIT 20 % (33-45); HEMOGLOBIN 6.5 g/dL (11.5-14.8); PLATELET COUNT (AUTO) 40 /CMM (150-450)
[2019-02-28 05:19] LABS: LYMPHOCYTES % (MANUAL) 9 % (16-48); MONOCYTES % (MANUAL) 3 % (0-11.0); NEUTROPHILS % (MANUAL) 88 (42-76)
--- NOTE | 2019-02-28 05:37 | NUR ---
RT Pt received intubated via ETT and on [facility] vent w charted settings. Vent is plugged into red outlet w [facility] @ hob. Alarms are set and audible. Sampling Theory Teacher done. Pt sx'd w no adverse reactions. No respiratory distress noted t/o shift. Addendum: 02/28/19 at 0542 by EDUARDO SAEED RT Amended: Links added.
[2019-02-28 06:09] LABS: D-DIMER 17.05 mg/L(FEU (0.17-0.50)
--- NOTE | 2019-02-28 07:30 | NUR ---
ICU/RN: Pt received intubated, vent set to ordered settings with O2 sat at 91% with FiO2 of 100%, PEEP 12. Responds only to deep pain, pupils equal with sluggish reaction to light. Gag, cough reflex + with thin, scant pink tinged secretions Attempted to reposition pt however quickly desturates to low to mid 80's. IVF infusing well through R UA PICC, FC draining to gravity, flexiseal in place. Tolerating TF. Safety measures in place. Will cont to monitor pt.
[2019-02-28] MEDS: ASPIRIN 81 MG TAB.CHEW GT SCH (07:35)
[2019-02-28] MEDS: LEVOTHYROXINE SODIUM 75 MCG TABLET GT SCH (08:06)
[2019-02-28] MEDS: SENNOSIDES 8.6 MG TABLET GT SCH ×2 (08:06→16:25)
[2019-02-28] MEDS: QUETIAPINE FUMARATE 100 MG TABLET GT SCH ×2 (08:06→16:25)
[2019-02-28] MEDS: FOLIC ACID 1 MG TABLET GT SCH (08:06)
[2019-02-28] MEDS: ATORVASTATIN 40 MG TABLET GT SCH (08:06)
[2019-02-28] MEDS: LACTOBACILLUS RHAMNOSUS GG 1 EACH CAP.SPRINK PO SCH ×2 (08:06→16:25)
--- NOTE | 2019-02-28 08:15 | NUR ---
ICU/RN: Tobin Ribeiro at bedside; updated on pt status. Informed of overnight events, unable to tolerate turning and repositioning, abn labs, hgb with orders to transfuse. Pt noted with oral bleeding and high risk for bleeding during hygienic care. Confirmed with MD plan for Bioethics meeting today at 1100 with ivonne Hodges. New orders noted and carried out.
--- NOTE | 2019-02-28 08:30 | NUR ---
ICU/RN: Spoke with Carroll, pt's grandson to updated on pt status. Continues to do poorly, on 100% FiO2, PEEP 12, requiring vasopressor support and blood transfusion. Confirmed presence at bioethics meeting at 1100 today with attending, SAMIAO and Dr Washington. artificial flowers starcher and nsg tray line supervisor aware.
--- NOTE | 2019-02-28 08:40 | NUR ---
ICU/RN: Dr Ray at bedside; updated on pt status.
[2019-02-28] MEDS: DOXYCYCLINE 100 MG in IV D5W 100 ML IV SCH (11:15)
--- NOTE | 2019-02-28 12:15 | NUR ---
ICU/RN: S/P Bioethics meeting attended by family including Sunil, pt's grandson (decision maker), brother, daughter, and grandsons. Poor prognosis discussed at length with family as well as treatment options. laboratory technical specialist available. Emotional support provided.
--- NOTE | 2019-02-28 12:50 | NUR ---
ICU/RN: Primary RN spoke with Sunil regarding code status extensively. Per family discussion, pt will be DNR, however wishes to continue aggressive treatment. Tobin Ribeiro, FABRICATION ENGINEER notified with orders. Per FABRICATION ENGINEER, administer blood transfusion as ordered.
[2019-02-28] MEDS: FLUCONAZOLE IN NS 100 MG in PREMIX 1 EA IV SCH ×2 (13:03)
--- NOTE | 2019-02-28 13:21 | NUR ---
Bioethics meeting was scheduled today for plan of care. Present in the meeting were ANGELY Carmen, Dr. Washington, Dr. Rudd, pts' RN LEODAN Montilla and family members which included, pt's sister Eden, brother Ricky, grandson Carroll, Tre and Carlos.
--- NOTE | 2019-02-28 15:30 | NUR ---
ICU/RN: Hygienic care, wound care rendered. Noted with large amount of soft, formed stool around flexiseal site. Discontinued as ordered. Pt unable to tolerate hygienic care and desaturated to 80's. Quickly elevated HOB to open airway with quick response back to 90's spO2.
[2019-02-28] MEDS: IV D5/ 0.9% NACL 1,000 ML IV PRN (16:04)
[2019-02-28] MEDS: LEVOFLOXACIN 250 MG /D5W 50 ML 250 MG in PREMIX 1 EA IV SCH (16:25)
[2019-02-28] MEDS: PANTOPRAZOLE 40 MG VIAL IV SCH (16:28)
--- NOTE | 2019-02-28 19:30 | NUR ---
RADIO/TV TECHNICIAN INITIAL SHIFT NOTES RECEIVED PATIENT IN BED, ASLEEP, EYES CLOSED. PATIENT REACTS/WITHDRAWS TO PAINFUL STIMULI. ORALLY INTUBATED, ETT 7.5, 22 CM AT LIP LINE, ON MECHANICAL VENT SETTINGS PRESCRIBED, TOLERATING WELL, NO S/S OF ACUTE RESPIRATORY DISTRESS. CLAUDIA PICC C/D/I AND PATENT, ALL PORTS FLUSHED WITH NS. REMAINS ON LEVOPHED GTT, CURRENTLY @ 12MCG/MIN, WELL D5NS @ 60ML/HR. HUGHES CATHETER PATENT AND INTACT, DRAINING YELLOW URINE WITH SEDIMENTS VIA GRAVITY. BILATERAL SOFT WRIST RESTRAINTS APPLIED FOR SAFETY, PATIENT AT RISK FOR SELF EXTUBATION. HOB KEPT @ 35 DEGREES. CALL LIGHT LEFT WITHIN EASY REACH, WILL CONTINUE TO CLOSELY MONITOR THE PATIENT
--- NOTE | 2019-02-28 20:27 | NUR ---
RECEIVED PT INTUBATED ON VENT. 7.5 ETT SECURED AT 22CM AT THE LIP. ETT CUFF PHYTOPATHOLOGY TEACHER. SX'D FOR MOD AMT OF TINGED SECRETIONS. VENT ALARMS SET AND AUDIBLE. VENT PLUGGED INTO RED OUTLET. WILL CONTINUE TO MONITOR. Addendum: 02/28/19 at 2027 by YUE GODINEZ RT Amended: Links added.
[2019-02-28] MEDS: MIRTAZAPINE 15 MG TABLET GT SCH (21:09)
[2019-03-01] VITALS (99 sets, daily range): BP systolic 66–135; BP diastolic 39–75
[2019-03-01] MEDS ORDERED: DOXYCYCLINE 100 MG VIAL ONE (01:08)
[2019-03-01] MEDS: DOXYCYCLINE 100 MG in IV D5W 100 ML IV SCH ×3 (01:11→23:56)
[2019-03-01 04:26] LABS: BASOPHILS % (AUTO) 0.4 % (0.0-2.0); EOSINOPHILS % (AUTO) 0.2 % (0.0-6.0); HEMATOCRIT 25 % (33-45); HEMOGLOBIN 8.4 g/dL (11.5-14.8); LYMPHOCYTES # (AUTO) 0.5 /CMM (0.8-4.8); LYMPHOCYTES % (AUTO) 4.3 % (20.0-44.0); MEAN CORPUSCULAR HGB CONC 34 g/dl (31.0-36.0); MEAN CORPUSCULAR VOLUME 89 fL (82-100); MONOCYTES # (AUTO) 0.7 /CMM (0.1-1.30); MONOCYTES % (AUTO) 5.5 % (2.0-12.0); NEUTROPHILS # (AUTO) 11.2 /CMM (1.8-8.9); NEUTROPHILS % (AUTO) 89.6 % (43.0-81.0); RED BLOOD CELL COUNT(AUTO) 2.82 MIL/uL (4.0-5.2); WHITE BLOOD COUNT (AUTO) 12.5 K/uL (4.3-11.0)
[2019-03-01 04:35] LABS: CALCIUM, SERUM 7.7 mg/dL (8.5-10.1); CARBON DIOXIDE 23 mmol/L (21-32); CHLORIDE 107 mmol/L (98-107); CREATININE 0.9 mg/dL (0.6-1.3); GLUCOSE 117 mg/dL (74-106); POTASSIUM 4.1 mmol/L (3.5-5.1); SODIUM SERUM 139 mmol/L (136-145); UREA NITROGEN, BLOOD 23 mg/dL (7-18)
[2019-03-01 04:52] LABS: PLATELET COUNT (AUTO) 31 /CMM (150-450)
[2019-03-01 05:19] LABS: LYMPHOCYTES % (MANUAL) 4 % (16-48); NEUTROPHILS % (MANUAL) 93 (42-76)
[2019-03-01 05:20] LABS: MONOCYTES % (MANUAL) 3 % (0-11.0)
[2019-03-01 05:47] LABS: D-DIMER 15.3 mg/L(FEU (0.17-0.50)
[2019-03-01] MEDS: MEROPENEM 1 G in IV NS 0.9% 100 ML IV SCH ×2 (06:11→17:48)
--- NOTE | 2019-03-01 08:21 | NUR ---
INITIAL CARBON ACCOUNTANT NOTE RCVD PT WITH EYES OPEN, SHAKING HEAD SIDE TO SIDE, NON-RESPONSIVE TO HER NAME OR TO ANY COMMANDS IN [place]. BILATERAL SOFT WRIST RESTRAINS IN PLACE, CIRCULATION CHECKS DONE AND PASSIVE ROM PERFORMED. ST ON MONITOR, TOLERATING ORDERED VENT SETTINGS WELL, OFF PRESSORS AT THIS TIME DESPITE PEEP 12. ETT 7.5 22 AT LIP LINE. NG-TUBE PLACEMENT VERIFIED BY AUSCULTATION AND ASPIRATION OF GASTRIC CONTENTS, NO RESIDUAL OBTAINED. CLAUDIA PICC C/D/I/PATENT, NO S/O INFILTRATION/PHLEBITIS OBSERVED, IVF INFUSING ORDERED. HUGHES TO GRAVITY DRAINING CLOUDY, YELLOW URINE. WILL CONTINUE TO MONITOR PT FOR SAFETY AND COMFORT. BED IN LOW AND LOCKED POSITION, CALL LIGHT WITHIN REACH, HEAD OF BED ELEVATED.
[2019-03-01] MEDS: SENNOSIDES 8.6 MG TABLET GT SCH ×2 (08:27→16:35)
[2019-03-01] MEDS: ATORVASTATIN 40 MG TABLET GT SCH (08:27)
[2019-03-01] MEDS: LEVOTHYROXINE SODIUM 75 MCG TABLET GT SCH (08:27)
[2019-03-01] MEDS: LACTOBACILLUS RHAMNOSUS GG 1 EACH CAP.SPRINK PO SCH ×2 (08:27→16:34)
[2019-03-01] MEDS: ASPIRIN 81 MG TAB.CHEW GT SCH (08:27)
[2019-03-01] MEDS: FOLIC ACID 1 MG TABLET GT SCH (08:27)
[2019-03-01] MEDS: QUETIAPINE FUMARATE 100 MG TABLET GT SCH (08:27)
[2019-03-01] MEDS: IV D5/ 0.9% NACL 1,000 ML IV PRN (08:52)
[2019-03-01] MEDS: NOREPINEPHRINE 16 MG in IV D5W 500 ML IV PRN ×2 (10:14→16:35)
--- NOTE | 2019-03-01 10:35 | NUR ---
DRILLING SUPERVISOR NOTE PT'S GRANDSON, BUSHRA CALLED HE WAS UPDATED REGARDING PT'S CONDITION AND THE NEED TO START LEVO AGAIN SINCE PT BECAME HYPOTENSIVE. QUESTIONS ANSWERED TO HIS SATISFACTION. WILL CONTINUE TO MONITOR PT.
[2019-03-01 10:36] LABS: ABG BASE EXCESS -2.2 mmol/L; ABG OXYGEN SATURATION 96.8 % (92.0-98.5); ABG PCO2 46.6 mmHg (35.0-45.0); ABG PH 7.325 (7.350-7.450); ABG PO2 102.4 mmHg (75.0-100.0); COHb 0.6 % (0.5-1.5); MetHb 0.8 % (0.0-1.5); O2Hb 95.4 % (94.0-97.0); PEEP,BG 12 cm H2O; SITE, ABG Left Radial; VT, ABG 450 mL
[2019-03-01] MEDS: FLUCONAZOLE IN NS 100 MG in PREMIX 1 EA IV SCH ×2 (12:34)
--- NOTE | 2019-03-01 12:46 | NUR ---
WOUND CARE CONSULT: LIMITED ASSESSMENT TODAY FOR SACRAL AREA. PT NOTED TO BECOME HYPOTENSIVE WHEN TURNED AND REPOSITIONED IN BED PER RN. PT NOTED TO HAVE SACRAL DEEP TISSUE INJURY WHICH IS INTACT. PT ALSO NOTED TO HAVE LOW PLATELET COUNT. MULTIPLE COMORBIDITIES NOTED INCLUDING RENAL INSUFFICIENCY, RESPIRATORY FAILURE (INTUBATED), SEPSIS WITH GENERALIZED EDEMA. RECOMMENDATIONS MADE FOR SKIN PROTECTION AND WOUND CARE. DISCUSSED WITH NURSING STAFF. PT ON JOVI ISOFLEX LOW AIRLOSS BED. WILL SEE PRN. DUE TO MULTIPLE COMORBIDITIES FURTHER SKIN BREAKDOWN MAY BE UNAVOIDABLE. Addendum: 03/01/19 at 1249 by FLIP SPRING WNDNU Amended: Links added.
[2019-03-01] MEDS: JEVITY 1.2 CAL 1,000 ML BOTTLE GT PRN (13:45)
[2019-03-01] MEDS: PANTOPRAZOLE 40 MG VIAL IV SCH (15:34)
[2019-03-01] MEDS: LEVOFLOXACIN 250 MG /D5W 50 ML 250 MG in PREMIX 1 EA IV SCH (16:34)
--- NOTE | 2019-03-01 17:17 | NUR ---
RT END OF THE SHIFT REPORT; PT. 78 Y OLD FEMALE REC. 0700 AM UNRESPONSIVE ORALLY INTUBATED ETT # 7.5 @ 22 CM LIP LINE. ON VENT WITH NOTED SETTINGS ABG DONE PER DR. EL ORDER, NO CHANGES ON VENT. SETTINGS, ALARMS ARE SET AND EQUAL CHEST RISE NOTED. HME CHANGED T/O DAY PT. SUX'D FOR MOD. AMT OF THICK REDDISH/YELLOW SECRETIONS. PT. REMAIN STABLE ON VENT. AMBU BAG WITH PEEP VALVE REMAIN ON THE BEDSIDE. VENT PLUGGED INTO RED OUTLET AND CONTINUE TO MONITOR PT. REPORT WILL BE PASSED TO PM SHIFT. Addendum: 03/01/19 at 1723 by BEBE JAMES RT Amended: Links added.
--- NOTE | 2019-03-01 18:02 | NUR ---
AGENCY OPERATOR NOTE PT REMAINS UNRESPONSIVE, SPONTANEOUSLY OPENING EYES BUT NOT FOLLOWING COMMANDS, OR RESPONDING TO HER NAME, ST ON MONITOR, TOLERATING ORDERED VENT SETTINGS, ETT 7.5 22 AT LIP, PINK TINGED ORAL/ETT SECRETIONS OBSERVED UPON SUCTIONING. NG-TUBE PLACEMENT VERIFIED BY RETURN OF GASTRIC CONTENT, NO TUBE FEEDING RESIDUAL OBTAINED, HUGHES TO GRAVITY DRAINING YELLOW URINE, CLAUDIA PICC C/D/I/PATENT, NO S/O INFILTRATION/PHLEBITIS OBSERVED, IVF INFUSING ORDERED. PT'S GRANDSON AT BEDSIDE UPDATED ON PT'S CONDITION. PT'S CARE WILL BE ENDORSED TO DRAWER IN PLAIN LOOM RN FOR CONTINUITY OF CARE, BED IN LOW AND LOCKED POSITION, CALL LIGHT WITHIN REACH, HEAD OF BED ELEVATED.
--- NOTE | 2019-03-01 18:06 | NUR ---
MEDICATION NOTE SENNA HELD TODAY TO PREVENT DIARRHEA AND FURTHER SKIN INJURY, PT'S STOOL OBSERVED TO BE SOFT.
--- NOTE | 2019-03-01 19:45 | NUR ---
PT RECEIVED INTUBATED 7.5 ETT SECURED AT 22CM AT THE LIP VIA ANCHOR FAST. TOLERATING VENT SETTINGS. SX'D FOR MOD AMT OF THIN TINGED SECRETIONS. VENT ALARMS SET AND AUDIBLE. 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 VENT PLUGGED INTO RED OUTLET. WILL CONTINUE TO MONITOR. Addendum: 03/01/19 at 1947 by YUE GODINEZ RT Amended: Links added.
--- NOTE | 2019-03-01 20:00 | NUR ---
AIR SEALING TECHNICIAN - NOTES - PT REMAINS UNRESPONSIVE, SPONTANEOUSLY OPENING EYES BUT NOT FOLLOWING COMMANDS, OR RESPONDING TO NAME, ST 100S ON MONITOR, TOLERATING ORDERED VENT SETTINGS, ETT 7.5 22 AT LIP, PINK TINGED ORAL/ETT SECRETIONS OBSERVED UPON SUCTIONING. NG-TUBE IN PLACE, WITH JEVITY @ 45 ML/HR TOLERATING WELL. HUGHES TO GRAVITY DRAINING YELLOW URINE, CLAUDIA PICC C/D/I/PATENT, NO S/O INFILTRATION/PHLEBITIS OBSERVED, D5NS @ 60 ML/HR INFUSING ORDERED. BED IN LOW AND LOCKED POSITION, CALL LIGHT WITHIN REACH, HEAD OF BED ELEVATED.
[2019-03-02] VITALS (70 sets, daily range): BP systolic 85–116; BP diastolic 26–75
[2019-03-02] MEDS: IV D5/ 0.9% NACL 1,000 ML IV PRN ×2 (02:27→17:39)
--- NOTE | 2019-03-02 04:00 | NUR ---
PT GIVEN FULL BED BATH, 1 LARGE FORMED BROWN BM. PT TURNED AND REPOSITIONED
--- NOTE | 2019-03-02 04:30 | NUR ---
CLAUDIA PICC LINE DRESSING CHANGED WITH STERILE TECHNIQUE
[2019-03-02 04:36] LABS: BASOPHILS % (AUTO) 0.3 % (0.0-2.0); EOSINOPHILS % (AUTO) 0.1 % (0.0-6.0); HEMATOCRIT 24 % (33-45); HEMOGLOBIN 8.2 g/dL (11.5-14.8); LYMPHOCYTES # (AUTO) 0.5 /CMM (0.8-4.8); LYMPHOCYTES % (AUTO) 4.9 % (20.0-44.0); MEAN CORPUSCULAR HGB CONC 34 g/dl (31.0-36.0); MEAN CORPUSCULAR VOLUME 90 fL (82-100); MONOCYTES # (AUTO) 0.8 /CMM (0.1-1.30); MONOCYTES % (AUTO) 7.3 % (2.0-12.0); NEUTROPHILS # (AUTO) 9.4 /CMM (1.8-8.9); NEUTROPHILS % (AUTO) 87.4 % (43.0-81.0); RED BLOOD CELL COUNT(AUTO) 2.72 MIL/uL (4.0-5.2); WHITE BLOOD COUNT (AUTO) 10.7 K/uL (4.3-11.0)
[2019-03-02 05:10] LABS: PLATELET COUNT (AUTO) 28 /CMM (150-450)
[2019-03-02] MEDS: MEROPENEM 1 G in IV NS 0.9% 100 ML IV SCH ×2 (05:41→17:19)
[2019-03-02 06:03] LABS: BAND % (MANUAL) 1 % (0.0-5.0); LYMPHOCYTES % (MANUAL) 3 % (16-48); MONOCYTES % (MANUAL) 6 % (0-11.0); NEUTROPHILS % (MANUAL) 90 (42-76)
--- NOTE | 2019-03-02 07:45 | NUR ---
ICU/RN: Pt received, easily awakens to touch, gag, cough reflex present. IVF infusing through CLAUDIA PICC. No distress noted. Will cont to monitor pt.
[2019-03-02 07:53] LABS: ABG BASE EXCESS -0.7 mmol/L; ABG PCO2 52.5 mmHg (35.0-45.0); ABG PO2 71.6 mmHg (75.0-100.0); AaDO2 588.9 mmHg; COHb 0.4 % (0.5-1.5); MetHb 0.7 % (0.0-1.5); PEEP,BG 12 cm H2O; SITE, ABG Right Radial
--- NOTE | 2019-03-02 08:00 | NUR ---
PATIENT REC'D ORALLY INTUBATED ON [facility] VENT WITH ORDERED SETTINGS. VENT ALARMS CHECKED + AUDIBLE. CUFF PRESSURE CHECKED SECURITY CHECKER. PATIENT SUCTIONED AND PATIENT AIRWAY PATENT. B/S DIM. CRUZ CURRENT PLAN OF CARE Addendum: 03/02/19 at 0802 by DUANE STEVE RT Amended: Links added.
[2019-03-02] MEDS: ATORVASTATIN 40 MG TABLET GT SCH (08:40)
[2019-03-02] MEDS: SENNOSIDES 8.6 MG TABLET GT SCH ×2 (08:40→16:37)
[2019-03-02] MEDS: LEVOTHYROXINE SODIUM 75 MCG TABLET GT SCH (08:40)
[2019-03-02] MEDS: FOLIC ACID 1 MG TABLET GT SCH (08:40)
[2019-03-02] MEDS: LACTOBACILLUS RHAMNOSUS GG 1 EACH CAP.SPRINK PO SCH ×2 (08:40→16:37)
[2019-03-02] MEDS: ASPIRIN 81 MG TAB.CHEW GT SCH (08:41)
[2019-03-02] MEDS: PROPOFOL 100 ML IV PRN ×2 (08:41→17:39)
--- NOTE | 2019-03-02 08:45 | NUR ---
ICU/RN: Dr Ray at bedside; updated on pt status. Pt awake and restless, however unable to follow commands. Sedated for comfort.
--- NOTE | 2019-03-02 09:15 | NUR ---
ICU/RN: Tobin Ribeiro STRAW HAT WASHER OPERATOR at bedside; updated on pt status. Requiring levophed for BP support during sedation.
[2019-03-02] MEDS: DOXYCYCLINE 100 MG in IV D5W 100 ML IV SCH (11:17)
[2019-03-02] MEDS: FLUCONAZOLE IN NS 100 MG in PREMIX 1 EA IV SCH ×2 (12:29)
[2019-03-02] MEDS: JEVITY 1.2 CAL 1,000 ML BOTTLE GT PRN (12:37)
--- NOTE | 2019-03-02 15:30 | NUR ---
ICU/RN: Hygienic and wound care rendered. Tolerated well. Sedated during procedure, O2 sats maintained by pt. Soft brown stool noted.
[2019-03-02] MEDS: PANTOPRAZOLE 40 MG VIAL IV SCH (16:37)
[2019-03-02] MEDS: LEVOFLOXACIN 250 MG /D5W 50 ML 250 MG in PREMIX 1 EA IV SCH (16:37)
[2019-03-02] MEDS: NOREPINEPHRINE 16 MG in IV D5W 500 ML IV PRN (17:20)
--- NOTE | 2019-03-02 17:45 | NUR ---
ICU/RN: kamron Barber at bedside; updated on pt status. Remains critically ill, sedated, on pressor and full vent support.
--- NOTE | 2019-03-02 18:45 | NUR ---
ICU/RN: Dr Yves aguayo; updated on pt status. Transfusion not indicated at this time.
--- NOTE | 2019-03-02 20:00 | NUR ---
Received patient intubated to vent and sedated with Diprivan gtt.Vent settings well tolerated.SR per Tele monitoring.With Levophed gtt infusing for BP support and will titrate accordingly.Feeding infusing via left nares NGT.Placement verified.No residual noted.HOB elevated.FC to gravity.All iv's infusing via CLAUDIA PICC LINE and site intact.Will turn and reposition Q 2 hrs.No distress noted.
[2019-03-03] VITALS (67 sets, daily range): BP systolic 67–110; BP diastolic 40–69
--- NOTE | 2019-03-03 02:00 | NUR ---
Patient tachypneic RR 30's and bucking up the vent.Secretions suctioned with moderate blood tinge secretions.Oral care done.Patient desat to low 80's.RT at bedside.Patient already on FIO2 100%.Diprivan gtt titrated to sedation.Continue monitoring.
[2019-03-03] MEDS: PROPOFOL 100 ML IV PRN ×3 (03:48→15:37)
[2019-03-03] MEDS: MEROPENEM 1 G in IV NS 0.9% 100 ML IV SCH (06:06)
--- NOTE | 2019-03-03 06:55 | NUR ---
Patient resting in no acute distress.Still desat to 85% with FIO2 100% per vent.NGT feeding well tolerated.Diprivan gtt infusing at 30 mcg and Levophed gtt at 10 mcg.Will endorse to day shift for continuity of care.
--- NOTE | 2019-03-03 07:15 | NUR ---
ICU/RN: Pt received intubated, on FiO2 100%, PEEP 12 saturating in mid to low 80's. Sunil, pt's grandson and decision maker notified of critical condition. Per grandson "I'll let my family know, we'll be there." Family requested container packer operator. Voice messages left to 4 different priests requesting assistance at bedside.
[2019-03-03] MEDS: FOLIC ACID 1 MG TABLET GT SCH (08:26)
[2019-03-03] MEDS: LEVOTHYROXINE SODIUM 75 MCG TABLET GT SCH (08:26)
[2019-03-03] MEDS: ATORVASTATIN 40 MG TABLET GT SCH (08:26)
[2019-03-03] MEDS: LACTOBACILLUS RHAMNOSUS GG 1 EACH CAP.SPRINK PO SCH ×2 (08:26→16:08)
[2019-03-03] MEDS: SENNOSIDES 8.6 MG TABLET GT SCH ×2 (08:26→16:08)
--- NOTE | 2019-03-03 09:00 | NUR ---
ICU/RN: Dr Ray at bedside. Discussed pt condition with family and imminent , pt continues to desaturate. Sunil, grandson to call in family. Product Manager Medical Device requested for spiritual support.
[2019-03-03 09:55] LABS: ABG BASE EXCESS -1.4 mmol/L; ABG OXYGEN SATURATION 82.9 % (92.0-98.5); ABG PCO2 55.2 mmHg (35.0-45.0); ABG PH 7.284 (7.350-7.450); ABG PO2 50.8 mmHg (75.0-100.0); COHb 0.4 % (0.5-1.5); MetHb 0.9 % (0.0-1.5); O2Hb 81.8 % (94.0-97.0); PEEP,BG 12 cm H2O; SITE, ABG Right Radial; VT, ABG 450 mL
[2019-03-03] MEDS: IV D5/ 0.9% NACL 1,000 ML IV PRN (10:05)
[2019-03-03] MEDS: DOXYCYCLINE 100 MG in IV D5W 100 ML IV SCH ×3 (11:18)
[2019-03-03] MEDS: FLUCONAZOLE IN NS 100 MG in PREMIX 1 EA IV SCH ×2 (13:19)
[2019-03-03] MEDS: JEVITY 1.2 CAL 1,000 ML BOTTLE GT PRN (15:27)
[2019-03-03] MEDS: PANTOPRAZOLE 40 MG VIAL IV SCH (16:08)
[2019-03-03] MEDS: LEVOFLOXACIN 250 MG /D5W 50 ML 250 MG in PREMIX 1 EA IV SCH (16:08)
--- NOTE | 2019-03-03 16:45 | NUR ---
ICU/RN: Carroll Martinez at bedside. States that family wishes to proceed with comfort care; Tobin Ribeiro NP notified. Awaiting orders.
--- NOTE | 2019-03-03 17:35 | NUR ---
ICU/RN: Orders received to initiate comfort measures, morphine drip. Family at bedside, involved in POC. Questions answered by Tobin Ribeiro NP at bedside.
--- NOTE | 2019-03-03 17:43 | NUR ---
RT NOTE: PATIENT RECEIVED ORALLY INTUBATED WITH 7.5 ETT SECURED AT 22CM MID LIP LINE. ALARMS VERIFIED AND AUDIBLE. SUCTIONED AND LAVAGED MODERATE TO LARGE AMOUNT OF BLOOD FROM ETT AND ORALLY. VENT PLUGGED INTO RED OUTLET. AMBU BAG AT [facility].
[2019-03-03] MEDS ORDERED: SCOPOLAMINE HBR 1 EA PATCH.TD72 TD SCH (18:00)
[2019-03-03] MEDS ORDERED: MORPHINE SULFATE INJ 4 MG/ML DISP.SYRIN IV ONE (18:00)
[2019-03-03] MEDS ORDERED: DC PROPOFOL WHEN EXTUBATED XX PRN (18:00)
--- NOTE | 2019-03-03 19:05 | NUR ---
ICU/RN: Morphine drip initiated; family at bedside. Supportive, emotional care given. Care endorsed to PM RN for GERARDO.
--- NOTE | 2019-03-03 19:15 | NUR ---
Received report patient on comfort care unresponsive with morphine gtt infusing awaiting for terminal extubation.Family at bedside.Emotional support provided.
--- NOTE | 2019-03-03 19:18 | NUR ---
Patient DNR on comfort care terminally extubated by RT and placed on 100% NRB mask. Patient saturation drop fast from 85% down to 30%.HR 117 down to 55.Continue to monitor.
--- NOTE | 2019-03-03 19:18 | NUR ---
pt extubated, placed on non rebreather 15 l, rn dora aware.
--- NOTE | 2019-03-03 19:30 | NUR ---
ICU/RN- PRONOUNCEMENT OF . PT. CODE STATUS"COMFORT MEASURES ONLY". ON ASSESSMENT, PT. IS UNRESPONSIVE TO ANY FORM OF STIMULI. PUPILS ARE FIXED AND DILATED. ALL EXTREMITIES ARE FLACCID. EKG ASYSTOLE X 2 LEADS, PERIPHERAL PULSES ARE ABSENT. APNEIC, RESPIRATIONS ARE ABSENT. NO SIGNS OF LIFE. PT. PRONOUNCED . BY:PEGGY BARBERN
--- NOTE | 2019-03-03 19:30 | NUR ---
Patient family at bedside tele reading asystole.Pronounced by Wendy Mosqueda RN.Emotional support rendered.
--- NOTE | 2019-03-03 20:08 | NUR ---
Reported to [facility] spoke to Ciara.She said not accepting.Case NO.[id number].
--- NOTE | 2019-03-03 20:30 | NUR ---
Post mortem care done.Awaiting for flower buncher or picker.
--- NOTE | 2019-03-03 22:48 | NUR ---
Body to [facility] [place] accompanied by Venkat May RN and security.No belongings.
== END 2019-03-03 19:30 | disposition expired | DRG 720 ==
LOC: ER 10:08 → ICU 14:00
PROVIDERS: ADMIT Student in an Organized Health Care Education/Training Program; ATTEND Nurse Practitioner Acute Care
PROC: 5A09457 Assistance with Respiratory Ventilation, 24-96 Consecutive Hours, Continuous Positive Airway Pressure (ICD-10-PCS; principal; 2019-02-17)
PROC: 0BH17EZ Insertion of Endotracheal Airway into Trachea, Via Natural or Artificial Opening (ICD-10-PCS; 2019-02-20)
PROC: 5A1955Z Respiratory Ventilation, Greater than 96 Consecutive Hours (ICD-10-PCS; 2019-02-20)
DX: A41.9 Sepsis, unspecified organism (principal); N17.0 Acute kidney failure with tubular necrosis; Z66 Do not resuscitate; Z51.5 Encounter for palliative care; J96.01 Acute respiratory failure with hypoxia; D65 Disseminated intravascular coagulation [defibrination syndrome]; E43 Unspecified severe protein-calorie malnutrition; J15.6 Pneumonia due to other Gram-negative bacteria; D61.818 Other pancytopenia; R65.21 Severe sepsis with septic shock; J15.9 Unspecified bacterial pneumonia; E44.0 Moderate protein-calorie malnutrition; G92 Toxic encephalopathy; K83.8 Other specified diseases of biliary tract; E87.0 Hyperosmolality and hypernatremia; E87.2 Acidosis; E03.9 Hypothyroidism, unspecified; D50.9 Iron deficiency anemia, unspecified; Z79.82 Long term (current) use of aspirin; Z79.899 Other long term (current) drug therapy; E86.0 Dehydration; E78.5 Hyperlipidemia, unspecified; E87.6 Hypokalemia; F03.90 Unspecified dementia, unspecified severity, without behavioral disturbance, psychotic disturbance, mood disturbance, and anxiety; I12.9 Hypertensive chronic kidney disease with stage 1 through stage 4 chronic kidney disease, or unspecified chronic kidney disease; N18.9 Chronic kidney disease, unspecified; F09 Unspecified mental disorder due to known physiological condition; K80.50 Calculus of bile duct without cholangitis or cholecystitis without obstruction; M62.82 Rhabdomyolysis; Z74.01 Bed confinement status; K82.8 Other specified diseases of gallbladder; Z98.890 Other specified postprocedural states; J90 Pleural effusion, not elsewhere classified; J98.11 Atelectasis; Y95 Nosocomial condition
CPT/HCPCS: 31720; 36415; 36569; 36600; 70450-TC; 71045-TC; 74018; 76705-TC; 80048-TC; 80053-TC; 80076-TC; 80202-TC; 81000-TC; 82247-TC; 82248-TC; 82272-TC; 82533; 82550-TC; 82728-TC; 82803-TC; 82962-TC; 83540-TC; 83605-TC; 83735-TC; 83970; 84100-TC; 84155; 84165; 84439-TC; 84443-TC; 84478-TC; 84484-TC; 85025-TC; 85385-TC; 85396; 85730-TC; 86850-TC; 86921-TC; 87040-TC; 87070-TC; 87081-TC; 87086-TC; 87186-TC; 87400; 94002-TC; 94003-TC; 94760-TC; 94799-TC; A4216; A4217; A4349; C1751; C9113; G0378; J0692; J1200; J1450; J1956; J2185; J2270; J2274; J2370; J2405; J2543; J3370; J3480; J3490; J7030; J7042; J7050; J7060; J7070; P9012; P9016-BL; P9034-BL